=== PATIENT | male | born 1945 | race Caucasian/White ===

== ENCOUNTER 2016-06-05 13:36 | Outpatient (CLI) | payer MEDICARE, MEDICAID ==
[~2016-06-05 13:36] MED LIST: ANDRODERM PATCH TD; COLC0.6T69 PO; DIAZ5TAB4 PO; ENOX80DI SQ; ESOM20CA PO; GLIM1TAB2 PO; HYDR-429 PO; LEVO100T9 PO; LOSA100T15 PO; SITA100T PO; TADA5TAB2 PO; WARF1TAB47 PO
== END 2016-06-05 23:59 | disposition home or self-care (01) ==
LOC: WOU 13:36
PROVIDERS: ATTEND Podiatrist Foot & Ankle Surgery
DX: I87.313 Chronic venous hypertension (idiopathic) with ulcer of bilateral lower extremity (principal); L97.821 Non-pressure chronic ulcer of other part of left lower leg limited to breakdown of skin; L97.811 Non-pressure chronic ulcer of other part of right lower leg limited to breakdown of skin; E11.9 Type 2 diabetes mellitus without complications; Z87.891 Personal history of nicotine dependence; Z86.718 Personal history of other venous thrombosis and embolism; Z86.711 Personal history of pulmonary embolism; Z83.3 Family history of diabetes mellitus; Z83.49 Family history of other endocrine, nutritional and metabolic diseases; J44.9 Chronic obstructive pulmonary disease, unspecified; I10 Essential (primary) hypertension
CPT/HCPCS: 11042; A6402 ×2

== ENCOUNTER 2016-06-17 14:08 | Outpatient (CLI) | payer MEDICARE, MEDICAID | END 2016-06-17 23:59 | disposition home or self-care (01) | LOC: WOU 14:08 | PROVIDERS: ATTEND Podiatrist Foot & Ankle Surgery | DX: I87.333 Chronic venous hypertension (idiopathic) with ulcer and inflammation of bilateral lower extremity (principal); L97.821 Non-pressure chronic ulcer of other part of left lower leg limited to breakdown of skin; L97.811 Non-pressure chronic ulcer of other part of right lower leg limited to breakdown of skin; Z86.718 Personal history of other venous thrombosis and embolism; Z79.01 Long term (current) use of anticoagulants; L03.119 Cellulitis of unspecified part of limb; I65.29 Occlusion and stenosis of unspecified carotid artery | CPT/HCPCS: 11042; A6402 ==

== ENCOUNTER 2016-07-01 13:12 | Outpatient (CLI) | payer MEDICARE, MEDICAID ==
[~2016-07-01 13:12] MED LIST changes: -HYDR-429 PO; +HYDR-548 PO
== END 2016-07-01 23:59 | disposition home or self-care (01) ==
LOC: WOU 13:12
PROVIDERS: ATTEND Podiatrist Foot & Ankle Surgery
DX: I83.008 Varicose veins of unspecified lower extremity with ulcer other part of lower leg (principal); L97.811 Non-pressure chronic ulcer of other part of right lower leg limited to breakdown of skin; L97.821 Non-pressure chronic ulcer of other part of left lower leg limited to breakdown of skin; B35.1 Tinea unguium; E03.9 Hypothyroidism, unspecified; Z87.891 Personal history of nicotine dependence; Z86.718 Personal history of other venous thrombosis and embolism; Z79.01 Long term (current) use of anticoagulants; Z79.84 Long term (current) use of oral hypoglycemic drugs; Z83.3 Family history of diabetes mellitus; I10 Essential (primary) hypertension; I83.893 Varicose veins of bilateral lower extremities with other complications
CPT/HCPCS: 11042; 11045; A6402 ×2

== ENCOUNTER 2016-07-10 14:32 | Outpatient (CLI) | payer MEDICARE, MEDICAID | END 2016-07-10 23:59 | disposition home or self-care (01) | LOC: WOU 14:32 | PROVIDERS: ATTEND Podiatrist Foot & Ankle Surgery | DX: I87.313 Chronic venous hypertension (idiopathic) with ulcer of bilateral lower extremity (principal); L97.821 Non-pressure chronic ulcer of other part of left lower leg limited to breakdown of skin; L97.811 Non-pressure chronic ulcer of other part of right lower leg limited to breakdown of skin; Z86.718 Personal history of other venous thrombosis and embolism; Z79.01 Long term (current) use of anticoagulants; Z87.891 Personal history of nicotine dependence; E03.9 Hypothyroidism, unspecified; E11.9 Type 2 diabetes mellitus without complications; I10 Essential (primary) hypertension; B35.1 Tinea unguium | CPT/HCPCS: 11042; A6402 ==

== ENCOUNTER 2016-07-17 14:20 | Outpatient (CLI) | payer MEDICARE, MEDICAID | END 2016-07-17 23:59 | disposition home or self-care (01) | LOC: WOU 14:20 | PROVIDERS: ATTEND Podiatrist Foot & Ankle Surgery | DX: I87.313 Chronic venous hypertension (idiopathic) with ulcer of bilateral lower extremity (principal); L97.223 Non-pressure chronic ulcer of left calf with necrosis of muscle; L97.213 Non-pressure chronic ulcer of right calf with necrosis of muscle; I82.221 Chronic embolism and thrombosis of inferior vena cava; E03.9 Hypothyroidism, unspecified; I10 Essential (primary) hypertension; E11.9 Type 2 diabetes mellitus without complications; J44.9 Chronic obstructive pulmonary disease, unspecified; Z79.01 Long term (current) use of anticoagulants; I65.29 Occlusion and stenosis of unspecified carotid artery; Z79.899 Other long term (current) drug therapy | CPT/HCPCS: 11042; 11045; A6402 ×2 ==

== ENCOUNTER 2016-07-24 13:28 | Outpatient (CLI) | payer MEDICARE, MEDICAID | END 2016-07-24 23:59 | disposition home or self-care (01) | LOC: WOU 13:28 | PROVIDERS: ATTEND Podiatrist Foot & Ankle Surgery | DX: I83.208 Varicose veins of unspecified lower extremity with both ulcer of other part of lower extremity and inflammation (principal); L97.813 Non-pressure chronic ulcer of other part of right lower leg with necrosis of muscle; L97.823 Non-pressure chronic ulcer of other part of left lower leg with necrosis of muscle; J44.9 Chronic obstructive pulmonary disease, unspecified; Z87.891 Personal history of nicotine dependence; Z83.3 Family history of diabetes mellitus; I83.893 Varicose veins of bilateral lower extremities with other complications; I65.29 Occlusion and stenosis of unspecified carotid artery; Z79.01 Long term (current) use of anticoagulants; Z86.718 Personal history of other venous thrombosis and embolism; I10 Essential (primary) hypertension; E11.9 Type 2 diabetes mellitus without complications | CPT/HCPCS: 11042; A6402 ==

== ENCOUNTER 2016-12-09 14:13 | Outpatient (CLI) | payer MEDICARE, MEDICAID | END 2016-12-09 23:59 | disposition home or self-care (01) | LOC: WOU 14:13 | PROVIDERS: ATTEND Podiatrist Foot & Ankle Surgery | DX: I87.333 Chronic venous hypertension (idiopathic) with ulcer and inflammation of bilateral lower extremity (principal); L97.821 Non-pressure chronic ulcer of other part of left lower leg limited to breakdown of skin; L97.811 Non-pressure chronic ulcer of other part of right lower leg limited to breakdown of skin; L03.90 Cellulitis, unspecified; Z86.718 Personal history of other venous thrombosis and embolism; I10 Essential (primary) hypertension; J44.9 Chronic obstructive pulmonary disease, unspecified; E03.9 Hypothyroidism, unspecified; Z87.891 Personal history of nicotine dependence; Z59.0 Homelessness | CPT/HCPCS: 11042; 11045; A6402 ×2 ==

== ENCOUNTER 2016-12-16 14:26 | Outpatient (CLI) | payer MEDICARE, MEDICAID | END 2016-12-16 23:59 | disposition home or self-care (01) | LOC: WOU 14:26 | PROVIDERS: ATTEND Podiatrist Foot & Ankle Surgery | DX: I87.2 Venous insufficiency (chronic) (peripheral) (principal); L97.821 Non-pressure chronic ulcer of other part of left lower leg limited to breakdown of skin; L97.811 Non-pressure chronic ulcer of other part of right lower leg limited to breakdown of skin; Z86.718 Personal history of other venous thrombosis and embolism; Z79.01 Long term (current) use of anticoagulants | CPT/HCPCS: 11042; 11045; A6402 ×2 ==

== ENCOUNTER 2016-12-25 13:46 | Outpatient (CLI) | payer MEDICARE, MEDICAID | END 2016-12-25 23:59 | disposition home or self-care (01) | LOC: WOU 13:46 | PROVIDERS: ATTEND Podiatrist Foot & Ankle Surgery | DX: I87.2 Venous insufficiency (chronic) (peripheral) (principal); L97.821 Non-pressure chronic ulcer of other part of left lower leg limited to breakdown of skin; L97.811 Non-pressure chronic ulcer of other part of right lower leg limited to breakdown of skin; Z86.718 Personal history of other venous thrombosis and embolism; Z79.01 Long term (current) use of anticoagulants; J44.9 Chronic obstructive pulmonary disease, unspecified; E03.9 Hypothyroidism, unspecified; I10 Essential (primary) hypertension; B35.3 Tinea pedis; B35.1 Tinea unguium; L85.3 Xerosis cutis; R60.0 Localized edema; E11.52 Type 2 diabetes mellitus with diabetic peripheral angiopathy with gangrene; Z79.84 Long term (current) use of oral hypoglycemic drugs | CPT/HCPCS: 11042; 11045; A6402 ==

== ENCOUNTER 2016-12-30 13:45 | Outpatient (CLI) | payer MEDICARE, MEDICAID | END 2016-12-30 23:59 | disposition home or self-care (01) | LOC: WOU 13:45 | PROVIDERS: ATTEND Podiatrist Foot & Ankle Surgery | DX: I87.333 Chronic venous hypertension (idiopathic) with ulcer and inflammation of bilateral lower extremity (principal); L97.821 Non-pressure chronic ulcer of other part of left lower leg limited to breakdown of skin; L97.811 Non-pressure chronic ulcer of other part of right lower leg limited to breakdown of skin; Z87.891 Personal history of nicotine dependence; Z86.718 Personal history of other venous thrombosis and embolism; E03.9 Hypothyroidism, unspecified; E11.51 Type 2 diabetes mellitus with diabetic peripheral angiopathy without gangrene; Z79.01 Long term (current) use of anticoagulants; Z79.84 Long term (current) use of oral hypoglycemic drugs | CPT/HCPCS: 17250; A6402 ==

== ENCOUNTER 2017-01-08 14:27 | Outpatient (CLI) | payer MEDICARE, MEDICAID | END 2017-01-08 23:59 | disposition home or self-care (01) | LOC: WOU 14:27 | PROVIDERS: ATTEND Podiatrist Foot & Ankle Surgery | DX: I87.2 Venous insufficiency (chronic) (peripheral) (principal); L97.821 Non-pressure chronic ulcer of other part of left lower leg limited to breakdown of skin; L97.811 Non-pressure chronic ulcer of other part of right lower leg limited to breakdown of skin; Z86.718 Personal history of other venous thrombosis and embolism; Z79.01 Long term (current) use of anticoagulants; Z79.84 Long term (current) use of oral hypoglycemic drugs; R60.0 Localized edema | CPT/HCPCS: 11042; 11045; A6197; A6402 ==

== ENCOUNTER 2017-01-13 14:42 | Outpatient (CLI) | payer MEDICARE, MEDICAID | END 2017-01-13 23:59 | disposition home or self-care (01) | LOC: WOU 14:42 | PROVIDERS: ATTEND Podiatrist Foot & Ankle Surgery | DX: I87.2 Venous insufficiency (chronic) (peripheral) (principal); L97.811 Non-pressure chronic ulcer of other part of right lower leg limited to breakdown of skin; L97.821 Non-pressure chronic ulcer of other part of left lower leg limited to breakdown of skin; Z86.718 Personal history of other venous thrombosis and embolism; Z79.01 Long term (current) use of anticoagulants; Z79.84 Long term (current) use of oral hypoglycemic drugs; R60.0 Localized edema | CPT/HCPCS: 11042; A6402 ×2 ==

== ENCOUNTER 2017-01-20 14:16 | Outpatient (CLI) | payer MEDICARE, MEDICAID | END 2017-01-20 23:59 | disposition home or self-care (01) | LOC: WOU 14:16 | PROVIDERS: ATTEND Podiatrist Foot & Ankle Surgery | DX: I87.2 Venous insufficiency (chronic) (peripheral) (principal); L97.811 Non-pressure chronic ulcer of other part of right lower leg limited to breakdown of skin; L97.821 Non-pressure chronic ulcer of other part of left lower leg limited to breakdown of skin; Z86.718 Personal history of other venous thrombosis and embolism; Z79.01 Long term (current) use of anticoagulants; R60.0 Localized edema; L03.115 Cellulitis of right lower limb; Z79.84 Long term (current) use of oral hypoglycemic drugs; E11.9 Type 2 diabetes mellitus without complications | CPT/HCPCS: 11042; 11045; 87070; A6402 ×2; 87186-TC ==

== ENCOUNTER 2017-01-29 13:35 | Outpatient (CLI) | payer MEDICARE, MEDICAID | END 2017-01-29 23:59 | disposition home or self-care (01) | LOC: WOU 13:35 | PROVIDERS: ATTEND Podiatrist Foot & Ankle Surgery | DX: I87.2 Venous insufficiency (chronic) (peripheral) (principal); Z86.718 Personal history of other venous thrombosis and embolism; Z79.01 Long term (current) use of anticoagulants; R60.0 Localized edema; L97.313 Non-pressure chronic ulcer of right ankle with necrosis of muscle; L97.811 Non-pressure chronic ulcer of other part of right lower leg limited to breakdown of skin; L97.821 Non-pressure chronic ulcer of other part of left lower leg limited to breakdown of skin | CPT/HCPCS: 11042; 11043; A6253; A6402 ==

== ENCOUNTER 2017-02-03 13:47 | Outpatient (CLI) | payer MEDICARE, MEDICAID | END 2017-02-03 23:59 | disposition home or self-care (01) | LOC: WOU 13:47 | PROVIDERS: ATTEND Podiatrist Foot & Ankle Surgery | DX: I83.013 Varicose veins of right lower extremity with ulcer of ankle (principal); I83.018 Varicose veins of right lower extremity with ulcer other part of lower leg; I83.028 Varicose veins of left lower extremity with ulcer other part of lower leg; L97.811 Non-pressure chronic ulcer of other part of right lower leg limited to breakdown of skin; L97.821 Non-pressure chronic ulcer of other part of left lower leg limited to breakdown of skin; L03.115 Cellulitis of right lower limb; L97.312 Non-pressure chronic ulcer of right ankle with fat layer exposed; Z86.718 Personal history of other venous thrombosis and embolism; Z79.01 Long term (current) use of anticoagulants | CPT/HCPCS: 11042; 82962-TC; A6402 ==

== ENCOUNTER 2017-02-17 09:11 | Outpatient (CLI) | payer MEDICARE, MEDICAID | END 2017-02-17 23:59 | disposition home or self-care (01) | LOC: WOU 09:11 | PROVIDERS: ATTEND Podiatrist Foot & Ankle Surgery | DX: I87.2 Venous insufficiency (chronic) (peripheral) (principal); L97.811 Non-pressure chronic ulcer of other part of right lower leg limited to breakdown of skin; L97.311 Non-pressure chronic ulcer of right ankle limited to breakdown of skin; R60.0 Localized edema; Z88.1 Allergy status to other antibiotic agents; T82.898D Other specified complication of vascular prosthetic devices, implants and grafts, subsequent encounter; Z86.718 Personal history of other venous thrombosis and embolism; Z79.02 Long term (current) use of antithrombotics/antiplatelets | CPT/HCPCS: 11042; A6402 ==

== ENCOUNTER 2017-02-23 13:38 | Outpatient (CLI) | payer MEDICARE, MEDICAID | END 2017-02-23 23:59 | disposition home or self-care (01) | LOC: WOU 13:38 | PROVIDERS: ATTEND Podiatrist Foot & Ankle Surgery | DX: I87.2 Venous insufficiency (chronic) (peripheral) (principal); L97.311 Non-pressure chronic ulcer of right ankle limited to breakdown of skin; L97.811 Non-pressure chronic ulcer of other part of right lower leg limited to breakdown of skin; R60.0 Localized edema; Z86.718 Personal history of other venous thrombosis and embolism; Z79.01 Long term (current) use of anticoagulants | CPT/HCPCS: 11042; 11045; 82962-TC; A6402 ==

== ENCOUNTER 2017-03-09 13:25 | Outpatient (CLI) | payer MEDICARE, MEDICAID | END 2017-03-09 23:59 | disposition home or self-care (01) | LOC: WOU 13:25 | PROVIDERS: ATTEND Podiatrist Foot & Ankle Surgery | DX: I87.2 Venous insufficiency (chronic) (peripheral) (principal); L97.311 Non-pressure chronic ulcer of right ankle limited to breakdown of skin; L97.811 Non-pressure chronic ulcer of other part of right lower leg limited to breakdown of skin; R60.0 Localized edema; Z86.718 Personal history of other venous thrombosis and embolism; Z79.01 Long term (current) use of anticoagulants; L03.115 Cellulitis of right lower limb; B35.1 Tinea unguium; B35.3 Tinea pedis | CPT/HCPCS: 11042; A6402 ×2 ==

== ENCOUNTER 2017-03-19 13:40 | Outpatient (CLI) | payer MEDICARE, OTHER | END 2017-03-19 23:59 | disposition home or self-care (01) | LOC: WOU 13:40 | PROVIDERS: ATTEND Podiatrist Foot & Ankle Surgery | DX: I87.2 Venous insufficiency (chronic) (peripheral) (principal); L97.311 Non-pressure chronic ulcer of right ankle limited to breakdown of skin; L97.811 Non-pressure chronic ulcer of other part of right lower leg limited to breakdown of skin; R60.0 Localized edema; Z86.718 Personal history of other venous thrombosis and embolism; Z79.01 Long term (current) use of anticoagulants; B35.1 Tinea unguium; B35.3 Tinea pedis; T82.59 Other mechanical complication of other cardiac and vascular devices and implants; L03.115 Cellulitis of right lower limb | CPT/HCPCS: 11042; 11045; 87070; 87075; 87077; A6253; A6402 ==

== ENCOUNTER 2017-03-26 13:15 | Outpatient (CLI) | payer MEDICARE, MEDICAID ==
[~2017-03-26 13:15] MED LIST changes: +methylPREDNISolone SOD SUCC 125 MG/2ML VIAL ONE
== END 2017-03-26 23:59 | disposition home or self-care (01) ==
LOC: WOU 13:15
PROVIDERS: ATTEND Podiatrist Foot & Ankle Surgery
DX: I87.331 Chronic venous hypertension (idiopathic) with ulcer and inflammation of right lower extremity (principal); L97.311 Non-pressure chronic ulcer of right ankle limited to breakdown of skin; L97.811 Non-pressure chronic ulcer of other part of right lower leg limited to breakdown of skin; L03.115 Cellulitis of right lower limb; I87.302 Chronic venous hypertension (idiopathic) without complications of left lower extremity; L90.9 Atrophic disorder of skin, unspecified; Z86.718 Personal history of other venous thrombosis and embolism; Z79.01 Long term (current) use of anticoagulants; Z88.1 Allergy status to other antibiotic agents; T82.59 Other mechanical complication of other cardiac and vascular devices and implants
CPT/HCPCS: 11042; 11045; A6253; A6402; J2930

== ENCOUNTER 2017-04-02 13:15 | Outpatient (CLI) | payer MEDICARE, MEDICAID ==
[~2017-04-02 13:15] MED LIST changes: -methylPREDNISolone SOD SUCC 125 MG/2ML VIAL ONE
== END 2017-04-02 23:59 | disposition home or self-care (01) ==
LOC: WOU 13:15
PROVIDERS: ATTEND Podiatrist Foot & Ankle Surgery
DX: L97.311 Non-pressure chronic ulcer of right ankle limited to breakdown of skin (principal); L97.811 Non-pressure chronic ulcer of other part of right lower leg limited to breakdown of skin; L03.115 Cellulitis of right lower limb; R60.0 Localized edema; Z86.718 Personal history of other venous thrombosis and embolism; T82.59 Other mechanical complication of other cardiac and vascular devices and implants; Z79.01 Long term (current) use of anticoagulants
CPT/HCPCS: 11042; 11045; A6253; A6402

== ENCOUNTER 2017-04-06 14:30 | Outpatient (CLI) | payer MEDICARE, MEDICAID | END 2017-04-06 23:59 | disposition home or self-care (01) | LOC: WOU 14:30 | PROVIDERS: ATTEND Podiatrist Foot & Ankle Surgery | DX: I83.213 Varicose veins of right lower extremity with both ulcer of ankle and inflammation (principal); L97.311 Non-pressure chronic ulcer of right ankle limited to breakdown of skin; L97.811 Non-pressure chronic ulcer of other part of right lower leg limited to breakdown of skin; B35.1 Tinea unguium; L03.115 Cellulitis of right lower limb; Z86.718 Personal history of other venous thrombosis and embolism; T82.59 Other mechanical complication of other cardiac and vascular devices and implants; Z79.01 Long term (current) use of anticoagulants | CPT/HCPCS: 11042; 11045; A6253; A6402 ==

== ENCOUNTER 2017-04-09 14:00 | Outpatient (CLI) | payer MEDICARE, MEDICAID | END 2017-04-09 23:59 | disposition home or self-care (01) | LOC: WOU 14:00 | PROVIDERS: ATTEND Podiatrist Foot & Ankle Surgery | DX: I87.2 Venous insufficiency (chronic) (peripheral) (principal); Z86.718 Personal history of other venous thrombosis and embolism; Z79.01 Long term (current) use of anticoagulants; T82.898D Other specified complication of vascular prosthetic devices, implants and grafts, subsequent encounter; L03.116 Cellulitis of left lower limb; L03.115 Cellulitis of right lower limb; R60.0 Localized edema; L97.312 Non-pressure chronic ulcer of right ankle with fat layer exposed; L97.829 Non-pressure chronic ulcer of other part of left lower leg with unspecified severity; L97.819 Non-pressure chronic ulcer of other part of right lower leg with unspecified severity | CPT/HCPCS: 11042; A6253; A6402 ==

== ENCOUNTER 2017-04-20 14:30 | Outpatient (CLI) | payer MEDICARE, MEDICAID | END 2017-04-20 23:59 | disposition home or self-care (01) | LOC: WOU 14:30 | PROVIDERS: ATTEND Podiatrist Foot & Ankle Surgery | DX: I87.2 Venous insufficiency (chronic) (peripheral) (principal); R60.0 Localized edema; L97.812 Non-pressure chronic ulcer of other part of right lower leg with fat layer exposed; L97.312 Non-pressure chronic ulcer of right ankle with fat layer exposed; L97.829 Non-pressure chronic ulcer of other part of left lower leg with unspecified severity; S91.302A Unspecified open wound, left foot, initial encounter; X58.XXXA Exposure to other specified factors, initial encounter; Z86.718 Personal history of other venous thrombosis and embolism; T82.898D Other specified complication of vascular prosthetic devices, implants and grafts, subsequent encounter; Y92.89 Other specified places as the place of occurrence of the external cause; Z79.01 Long term (current) use of anticoagulants; S80.12XA Contusion of left lower leg, initial encounter | CPT/HCPCS: 10160; 11042; 11043; 87070; 87075; 87077; 87186; A6253 ×2; A6402; J3490 ==

== ENCOUNTER 2017-04-30 14:00 | Outpatient (CLI) | payer MEDICARE, MEDICAID | END 2017-04-30 23:59 | disposition home or self-care (01) | LOC: WOU 14:00 | PROVIDERS: ATTEND Podiatrist Foot & Ankle Surgery | DX: I87.2 Venous insufficiency (chronic) (peripheral) (principal); L97.312 Non-pressure chronic ulcer of right ankle with fat layer exposed; L97.812 Non-pressure chronic ulcer of other part of right lower leg with fat layer exposed; L97.822 Non-pressure chronic ulcer of other part of left lower leg with fat layer exposed; Z86.718 Personal history of other venous thrombosis and embolism; Z79.01 Long term (current) use of anticoagulants; R60.0 Localized edema | CPT/HCPCS: 11042; A6253 ×2; A6402 ×2 ==

== ENCOUNTER 2017-05-11 13:40 | Outpatient (CLI) | payer MEDICARE, MEDICAID | END 2017-05-11 23:59 | disposition home or self-care (01) | LOC: WOU 13:40 | PROVIDERS: ATTEND Podiatrist Foot & Ankle Surgery | DX: I87.2 Venous insufficiency (chronic) (peripheral) (principal); L97.312 Non-pressure chronic ulcer of right ankle with fat layer exposed; L97.829 Non-pressure chronic ulcer of other part of left lower leg with unspecified severity; L97.812 Non-pressure chronic ulcer of other part of right lower leg with fat layer exposed; Z86.718 Personal history of other venous thrombosis and embolism; Z79.01 Long term (current) use of anticoagulants; T82.59 Other mechanical complication of other cardiac and vascular devices and implants | CPT/HCPCS: 11042; 11045; A6253 ×3; A6402 ==

== ENCOUNTER 2017-07-02 14:08 | Outpatient (CLI) | payer MEDICARE, MEDICAID ==
[~2017-07-02 14:08] MED LIST changes: +COLC0.6T67 PO; -COLC0.6T69 PO
== END 2017-07-02 23:59 | disposition home or self-care (01) ==
LOC: WOU 14:08
PROVIDERS: ATTEND Podiatrist Foot & Ankle Surgery
DX: I87.2 Venous insufficiency (chronic) (peripheral) (principal); L97.312 Non-pressure chronic ulcer of right ankle with fat layer exposed; L97.822 Non-pressure chronic ulcer of other part of left lower leg with fat layer exposed; L97.812 Non-pressure chronic ulcer of other part of right lower leg with fat layer exposed; R60.0 Localized edema; I25.10 Atherosclerotic heart disease of native coronary artery without angina pectoris; Z95.1 Presence of aortocoronary bypass graft; Z87.891 Personal history of nicotine dependence; E11.9 Type 2 diabetes mellitus without complications; J44.9 Chronic obstructive pulmonary disease, unspecified; Z86.718 Personal history of other venous thrombosis and embolism; Z79.01 Long term (current) use of anticoagulants; Z79.84 Long term (current) use of oral hypoglycemic drugs; I10 Essential (primary) hypertension
CPT/HCPCS: 11042; 11045; 82962; A6253; A6402 ×2

== ENCOUNTER 2017-07-09 12:41 | Outpatient (CLI) | payer MEDICARE, MEDICAID | END 2017-07-09 23:59 | disposition home or self-care (01) | LOC: WOU 12:41 | PROVIDERS: ATTEND Podiatrist Foot & Ankle Surgery | DX: I87.2 Venous insufficiency (chronic) (peripheral) (principal); L97.312 Non-pressure chronic ulcer of right ankle with fat layer exposed; L97.822 Non-pressure chronic ulcer of other part of left lower leg with fat layer exposed; L97.812 Non-pressure chronic ulcer of other part of right lower leg with fat layer exposed; R60.0 Localized edema; Z86.718 Personal history of other venous thrombosis and embolism; Z79.01 Long term (current) use of anticoagulants; T82.59 Other mechanical complication of other cardiac and vascular devices and implants; L90.9 Atrophic disorder of skin, unspecified | CPT/HCPCS: 11042; 17250; A6253; A6402; A6452 ==

== ENCOUNTER 2017-08-10 14:07 | Outpatient (CLI) | payer MEDICARE, MEDICAID | END 2017-08-10 23:59 | disposition home or self-care (01) | LOC: WOU 14:07 | PROVIDERS: ATTEND Podiatrist Foot & Ankle Surgery | DX: I87.2 Venous insufficiency (chronic) (peripheral) (principal); L97.312 Non-pressure chronic ulcer of right ankle with fat layer exposed; L97.822 Non-pressure chronic ulcer of other part of left lower leg with fat layer exposed; L97.812 Non-pressure chronic ulcer of other part of right lower leg with fat layer exposed; I25.10 Atherosclerotic heart disease of native coronary artery without angina pectoris; Z95.1 Presence of aortocoronary bypass graft; Z79.01 Long term (current) use of anticoagulants; R60.0 Localized edema; Z86.718 Personal history of other venous thrombosis and embolism; I10 Essential (primary) hypertension; J44.9 Chronic obstructive pulmonary disease, unspecified; E11.9 Type 2 diabetes mellitus without complications; T85.698D Other mechanical complication of other specified internal prosthetic devices, implants and grafts, subsequent encounter; Z79.84 Long term (current) use of oral hypoglycemic drugs | CPT/HCPCS: 11042; 82962-TC; A6253; A6402 ==

== ENCOUNTER 2017-08-24 13:41 | Outpatient (CLI) | payer MEDICARE, MEDICAID | END 2017-08-24 23:59 | disposition home or self-care (01) | LOC: WOU 13:41 | PROVIDERS: ATTEND Podiatrist Foot & Ankle Surgery | DX: I87.2 Venous insufficiency (chronic) (peripheral) (principal); Z86.718 Personal history of other venous thrombosis and embolism; L97.822 Non-pressure chronic ulcer of other part of left lower leg with fat layer exposed; L97.812 Non-pressure chronic ulcer of other part of right lower leg with fat layer exposed; L97.312 Non-pressure chronic ulcer of right ankle with fat layer exposed; T82.59 Other mechanical complication of other cardiac and vascular devices and implants | CPT/HCPCS: 11042; A6253; A6402 ==

== ENCOUNTER 2017-09-03 13:55 | Outpatient (CLI) | payer MEDICARE, MEDICAID | END 2017-09-03 23:59 | disposition home or self-care (01) | LOC: WOU 13:55 | PROVIDERS: ATTEND Podiatrist Foot & Ankle Surgery | DX: I87.2 Venous insufficiency (chronic) (peripheral) (principal); L97.312 Non-pressure chronic ulcer of right ankle with fat layer exposed; L97.812 Non-pressure chronic ulcer of other part of right lower leg with fat layer exposed; L97.822 Non-pressure chronic ulcer of other part of left lower leg with fat layer exposed; R60.9 Edema, unspecified; Z98.890 Other specified postprocedural states | CPT/HCPCS: 11042; 82962; A6253; A6402 ×2; A6209 ==

== ENCOUNTER 2017-09-28 14:27 | Outpatient (CLI) | payer MEDICARE, OTHER | END 2017-09-28 23:59 | disposition home or self-care (01) | LOC: WOU 14:27 | PROVIDERS: ATTEND Podiatrist Foot & Ankle Surgery | DX: I87.313 Chronic venous hypertension (idiopathic) with ulcer of bilateral lower extremity (principal); L97.812 Non-pressure chronic ulcer of other part of right lower leg with fat layer exposed; L97.312 Non-pressure chronic ulcer of right ankle with fat layer exposed; L97.822 Non-pressure chronic ulcer of other part of left lower leg with fat layer exposed; L30.9 Dermatitis, unspecified; B35.1 Tinea unguium | CPT/HCPCS: 11042; A6402; A6452 ==

== ENCOUNTER 2017-10-08 14:25 | Outpatient (CLI) | payer MEDICARE, MEDICAID, OTHER | END 2017-10-08 23:59 | disposition home or self-care (01) | LOC: WOU 14:25 | PROVIDERS: ATTEND Podiatrist Foot & Ankle Surgery | DX: I87.2 Venous insufficiency (chronic) (peripheral) (principal); L97.818 Non-pressure chronic ulcer of other part of right lower leg with other specified severity; L97.312 Non-pressure chronic ulcer of right ankle with fat layer exposed; L97.828 Non-pressure chronic ulcer of other part of left lower leg with other specified severity; L81.9 Disorder of pigmentation, unspecified; R60.9 Edema, unspecified; Z88.8 Allergy status to other drugs, medicaments and biological substances; Z98.890 Other specified postprocedural states; Z79.01 Long term (current) use of anticoagulants; Z79.84 Long term (current) use of oral hypoglycemic drugs; Z79.891 Long term (current) use of opiate analgesic | CPT/HCPCS: A6253; A6402; G0463 ==

== ENCOUNTER 2017-10-15 13:45 | Outpatient (CLI) | payer MEDICARE, OTHER | END 2017-10-15 23:59 | disposition home or self-care (01) | LOC: WOU 13:45 | PROVIDERS: ATTEND Podiatrist Foot & Ankle Surgery | DX: I87.2 Venous insufficiency (chronic) (peripheral) (principal); I87.8 Other specified disorders of veins; L97.822 Non-pressure chronic ulcer of other part of left lower leg with fat layer exposed; L97.812 Non-pressure chronic ulcer of other part of right lower leg with fat layer exposed; L97.312 Non-pressure chronic ulcer of right ankle with fat layer exposed; Z86.718 Personal history of other venous thrombosis and embolism; Z79.01 Long term (current) use of anticoagulants; T82.59 Other mechanical complication of other cardiac and vascular devices and implants | CPT/HCPCS: 11042; 82962; A6402 ×3 ==

== ENCOUNTER 2017-10-29 13:56 | Outpatient (CLI) | payer MEDICARE, MEDICAID | END 2017-10-29 23:59 | disposition home or self-care (01) | LOC: WOU 13:56 | PROVIDERS: ATTEND Podiatrist Foot & Ankle Surgery | DX: I87.2 Venous insufficiency (chronic) (peripheral) (principal); L97.822 Non-pressure chronic ulcer of other part of left lower leg with fat layer exposed; L97.812 Non-pressure chronic ulcer of other part of right lower leg with fat layer exposed; L97.312 Non-pressure chronic ulcer of right ankle with fat layer exposed; Z86.718 Personal history of other venous thrombosis and embolism; I25.10 Atherosclerotic heart disease of native coronary artery without angina pectoris; T85.698D Other mechanical complication of other specified internal prosthetic devices, implants and grafts, subsequent encounter; Z79.84 Long term (current) use of oral hypoglycemic drugs; Z79.01 Long term (current) use of anticoagulants | CPT/HCPCS: 11042; A6253; A6402 ==

== ENCOUNTER 2017-11-05 13:11 | Outpatient (CLI) | payer MEDICARE, MEDICAID | END 2017-11-05 23:59 | disposition home or self-care (01) | LOC: WOU 13:11 | PROVIDERS: ATTEND Podiatrist Foot & Ankle Surgery | DX: I87.313 Chronic venous hypertension (idiopathic) with ulcer of bilateral lower extremity (principal); L97.822 Non-pressure chronic ulcer of other part of left lower leg with fat layer exposed; L97.312 Non-pressure chronic ulcer of right ankle with fat layer exposed; L97.812 Non-pressure chronic ulcer of other part of right lower leg with fat layer exposed; I25.10 Atherosclerotic heart disease of native coronary artery without angina pectoris; Z86.718 Personal history of other venous thrombosis and embolism; T82.59 Other mechanical complication of other cardiac and vascular devices and implants | CPT/HCPCS: 11042; 17250; A6402 ==

== ENCOUNTER 2017-11-12 11:20 | Outpatient (CLI) | payer MEDICARE, MEDICAID | END 2017-11-12 23:59 | disposition home or self-care (01) | LOC: WOU 11:20 | PROVIDERS: ATTEND Podiatrist Foot & Ankle Surgery | DX: I83.013 Varicose veins of right lower extremity with ulcer of ankle (principal); I83.023 Varicose veins of left lower extremity with ulcer of ankle; L97.312 Non-pressure chronic ulcer of right ankle with fat layer exposed; L97.822 Non-pressure chronic ulcer of other part of left lower leg with fat layer exposed; Z79.84 Long term (current) use of oral hypoglycemic drugs; Z86.718 Personal history of other venous thrombosis and embolism; Z79.01 Long term (current) use of anticoagulants; T82.59 Other mechanical complication of other cardiac and vascular devices and implants | CPT/HCPCS: 11042; A6253; A6402; A6452 ==

== ENCOUNTER 2017-11-23 13:46 | Outpatient (CLI) | payer MEDICARE, MEDICAID | END 2017-11-23 23:59 | disposition home or self-care (01) | LOC: WOU 13:46 | PROVIDERS: ATTEND Podiatrist Foot & Ankle Surgery | DX: I87.2 Venous insufficiency (chronic) (peripheral) (principal); L97.822 Non-pressure chronic ulcer of other part of left lower leg with fat layer exposed; L97.812 Non-pressure chronic ulcer of other part of right lower leg with fat layer exposed; L97.312 Non-pressure chronic ulcer of right ankle with fat layer exposed; R60.0 Localized edema; T82.59 Other mechanical complication of other cardiac and vascular devices and implants; Z86.718 Personal history of other venous thrombosis and embolism; Z79.01 Long term (current) use of anticoagulants; Z87.828 Personal history of other (healed) physical injury and trauma; I25.10 Atherosclerotic heart disease of native coronary artery without angina pectoris; Z88.1 Allergy status to other antibiotic agents | CPT/HCPCS: 11042; A6253; A6402 ==

== ENCOUNTER 2017-12-10 13:21 | Outpatient (CLI) | payer MEDICARE, MEDICAID | END 2017-12-10 23:59 | disposition home or self-care (01) | LOC: WOU 13:21 | PROVIDERS: ATTEND Podiatrist Foot & Ankle Surgery | DX: I87.2 Venous insufficiency (chronic) (peripheral) (principal); L97.822 Non-pressure chronic ulcer of other part of left lower leg with fat layer exposed; L97.812 Non-pressure chronic ulcer of other part of right lower leg with fat layer exposed; L97.312 Non-pressure chronic ulcer of right ankle with fat layer exposed; Z86.718 Personal history of other venous thrombosis and embolism; Z79.01 Long term (current) use of anticoagulants; T82.59 Other mechanical complication of other cardiac and vascular devices and implants; I25.10 Atherosclerotic heart disease of native coronary artery without angina pectoris | CPT/HCPCS: 17250 ×2; A6253; A6402; Z7610 ==

== ENCOUNTER 2018-01-04 14:40 | Outpatient (CLI) | payer MEDICARE, MEDICAID | END 2018-01-04 23:59 | disposition home or self-care (01) | LOC: WOU 14:40 | PROVIDERS: ATTEND Podiatrist Foot & Ankle Surgery | DX: I87.2 Venous insufficiency (chronic) (peripheral) (principal); L97.318 Non-pressure chronic ulcer of right ankle with other specified severity; L97.818 Non-pressure chronic ulcer of other part of right lower leg with other specified severity; L97.828 Non-pressure chronic ulcer of other part of left lower leg with other specified severity; R60.0 Localized edema; I73.9 Peripheral vascular disease, unspecified; Z79.899 Other long term (current) drug therapy | CPT/HCPCS: 11042; 17250 ×2; A6253 ×2; A6402; Z7610 ==

== ENCOUNTER 2018-01-25 13:50 | Outpatient (CLI) | payer MEDICARE, MEDICAID | END 2018-01-25 23:59 | disposition home or self-care (01) | LOC: WOU 13:50 | PROVIDERS: ATTEND Podiatrist Foot & Ankle Surgery | DX: I87.2 Venous insufficiency (chronic) (peripheral) (principal); L97.812 Non-pressure chronic ulcer of other part of right lower leg with fat layer exposed; L97.312 Non-pressure chronic ulcer of right ankle with fat layer exposed; L97.822 Non-pressure chronic ulcer of other part of left lower leg with fat layer exposed; I73.9 Peripheral vascular disease, unspecified; R60.0 Localized edema | CPT/HCPCS: 17250; 82962-TC; A6402; Z7610 ==

== ENCOUNTER 2018-02-01 14:00 | Outpatient (CLI) | payer MEDICARE, MEDICAID | END 2018-02-01 23:59 | disposition home or self-care (01) | LOC: WOU 14:00 | PROVIDERS: ATTEND Podiatrist Foot & Ankle Surgery | DX: I87.2 Venous insufficiency (chronic) (peripheral) (principal); L97.318 Non-pressure chronic ulcer of right ankle with other specified severity; L97.812 Non-pressure chronic ulcer of other part of right lower leg with fat layer exposed; L97.822 Non-pressure chronic ulcer of other part of left lower leg with fat layer exposed; I10 Essential (primary) hypertension; R60.9 Edema, unspecified; Z86.718 Personal history of other venous thrombosis and embolism; Z79.891 Long term (current) use of opiate analgesic; Z79.01 Long term (current) use of anticoagulants | CPT/HCPCS: 11042; 11045; 82962; A6402 ×2; Z7610 ==

== ENCOUNTER 2018-02-15 14:07 | Outpatient (CLI) | payer MEDICARE, MEDICAID | END 2018-02-15 23:59 | disposition home or self-care (01) | LOC: WOU 14:07 | PROVIDERS: ATTEND Podiatrist Foot & Ankle Surgery | DX: I87.2 Venous insufficiency (chronic) (peripheral) (principal); L97.822 Non-pressure chronic ulcer of other part of left lower leg with fat layer exposed; L97.812 Non-pressure chronic ulcer of other part of right lower leg with fat layer exposed; L97.312 Non-pressure chronic ulcer of right ankle with fat layer exposed; Z86.718 Personal history of other venous thrombosis and embolism; T82.59 Other mechanical complication of other cardiac and vascular devices and implants; I25.10 Atherosclerotic heart disease of native coronary artery without angina pectoris; R60.0 Localized edema; Z79.01 Long term (current) use of anticoagulants | CPT/HCPCS: 11042; 11045; A6402; Z7610 ==

== ENCOUNTER 2018-02-25 14:15 | Outpatient (CLI) | payer MEDICARE, OTHER ==
[~2018-02-25 14:15] MED LIST changes: +HYDR-4354 PO; -HYDR-548 PO
[2018-04-08] MEDS ORDERED: IRBESARTAN/HCTZ PO (15:42)
[2018-04-08] MEDS ORDERED: CARV12.52 PO (15:42)
[2018-04-08] MEDS ORDERED: LEVO112T7 PO (15:42)
[2018-04-08] MEDS ORDERED: MAGN400T26 PO (15:42)
[2018-04-08] MEDS ORDERED: ATOR40TA PO (15:42)
[2018-04-08] MEDS ORDERED: APIX5TAB PO (15:42)
[2018-04-08] MEDS ORDERED: OMEG-72 PO (15:42)
== END 2018-02-25 23:59 | disposition home or self-care (01) ==
LOC: WOU 14:15
PROVIDERS: ATTEND Podiatrist Foot & Ankle Surgery
DX: I87.2 Venous insufficiency (chronic) (peripheral) (principal); L97.822 Non-pressure chronic ulcer of other part of left lower leg with fat layer exposed; L97.812 Non-pressure chronic ulcer of other part of right lower leg with fat layer exposed; L97.312 Non-pressure chronic ulcer of right ankle with fat layer exposed; Z86.718 Personal history of other venous thrombosis and embolism; Z79.01 Long term (current) use of anticoagulants; T82.898D Other specified complication of vascular prosthetic devices, implants and grafts, subsequent encounter; I25.10 Atherosclerotic heart disease of native coronary artery without angina pectoris; R60.0 Localized edema; L84 Corns and callosities
CPT/HCPCS: 11042; 11045; A6402; Z7610

== ENCOUNTER 2018-03-15 13:50 | Outpatient (CLI) | payer MEDICARE, MEDICAID ==
[2018-04-08] MEDS ORDERED: IRBESARTAN/HCTZ PO (15:42)
[2018-04-08] MEDS ORDERED: LEVO112T7 PO (15:42)
[2018-04-08] MEDS ORDERED: APIX5TAB PO (15:42)
[2018-04-08] MEDS ORDERED: ATOR40TA PO (15:42)
[2018-04-08] MEDS ORDERED: MAGN400T26 PO (15:42)
[2018-04-08] MEDS ORDERED: CARV12.52 PO (15:42)
[2018-04-08] MEDS ORDERED: OMEG-72 PO (15:42)
== END 2018-03-15 23:59 | disposition home or self-care (01) ==
LOC: WOU 13:50
PROVIDERS: ATTEND Podiatrist Foot & Ankle Surgery
DX: I87.2 Venous insufficiency (chronic) (peripheral) (principal); L97.812 Non-pressure chronic ulcer of other part of right lower leg with fat layer exposed; L97.312 Non-pressure chronic ulcer of right ankle with fat layer exposed; L97.822 Non-pressure chronic ulcer of other part of left lower leg with fat layer exposed; R60.9 Edema, unspecified; B35.3 Tinea pedis; B35.1 Tinea unguium; Z86.718 Personal history of other venous thrombosis and embolism; Z79.01 Long term (current) use of anticoagulants; T82.898D Other specified complication of vascular prosthetic devices, implants and grafts, subsequent encounter
CPT/HCPCS: 17250 ×2; A6402 ×2; Z7610

== ENCOUNTER 2018-05-13 13:26 | Outpatient (CLI) | payer MEDICARE, OTHER ==
[~2018-05-13 13:26] MED LIST changes: -ANDRODERM PATCH TD; +APIX5TAB PO; +ATOR40TA PO; +CARV12.52 PO; -COLC0.6T67 PO; -DIAZ5TAB4 PO; -ENOX80DI SQ; -ESOM20CA PO; -LEVO100T9 PO; +LEVO112T7 PO; -LOSA100T15 PO; +MAGN400T26 PO; +OMEG-72 PO; -TADA5TAB2 PO; -WARF1TAB47 PO
== END 2018-05-13 23:59 | disposition home or self-care (01) ==
LOC: WOU 13:26
PROVIDERS: ATTEND Podiatrist Foot & Ankle Surgery
DX: I87.2 Venous insufficiency (chronic) (peripheral) (principal); L97.312 Non-pressure chronic ulcer of right ankle with fat layer exposed; L97.822 Non-pressure chronic ulcer of other part of left lower leg with fat layer exposed; L97.812 Non-pressure chronic ulcer of other part of right lower leg with fat layer exposed; I25.10 Atherosclerotic heart disease of native coronary artery without angina pectoris; I10 Essential (primary) hypertension; E11.9 Type 2 diabetes mellitus without complications; E03.9 Hypothyroidism, unspecified; J44.9 Chronic obstructive pulmonary disease, unspecified; I82.211 Chronic embolism and thrombosis of superior vena cava; Z87.891 Personal history of nicotine dependence; T82.59 Other mechanical complication of other cardiac and vascular devices and implants; Z79.01 Long term (current) use of anticoagulants; Z79.84 Long term (current) use of oral hypoglycemic drugs
CPT/HCPCS: 11042; 11045; A6402; Z7610

== ENCOUNTER 2018-06-10 12:00 | Outpatient (CLI) | payer MEDICARE, OTHER | END 2018-06-10 23:59 | disposition home or self-care (01) | LOC: WOU 12:00 | PROVIDERS: ATTEND Podiatrist Foot & Ankle Surgery | DX: I87.2 Venous insufficiency (chronic) (peripheral) (principal); L97.312 Non-pressure chronic ulcer of right ankle with fat layer exposed; Z79.84 Long term (current) use of oral hypoglycemic drugs; Z79.899 Other long term (current) drug therapy; R42 Dizziness and giddiness; Z86.718 Personal history of other venous thrombosis and embolism; T82.59 Other mechanical complication of other cardiac and vascular devices and implants | CPT/HCPCS: 11042; A6402 ×2; G0463; Z7610 ==

== ENCOUNTER 2018-07-22 12:00 | Outpatient (CLI) | payer MEDICARE, MEDICAID | END 2018-07-22 23:59 | disposition home or self-care (01) | LOC: WOU 12:00 | PROVIDERS: ATTEND Podiatrist Foot & Ankle Surgery | DX: I87.2 Venous insufficiency (chronic) (peripheral) (principal); L97.312 Non-pressure chronic ulcer of right ankle with fat layer exposed; L97.818 Non-pressure chronic ulcer of other part of right lower leg with other specified severity; R60.0 Localized edema; Z86.718 Personal history of other venous thrombosis and embolism; Z79.01 Long term (current) use of anticoagulants; Z79.84 Long term (current) use of oral hypoglycemic drugs; T82.59 Other mechanical complication of other cardiac and vascular devices and implants | CPT/HCPCS: 17250 ×2; A6402 ==

== ENCOUNTER 2018-08-02 11:50 | Outpatient (CLI) | payer MEDICARE, MEDICAID | END 2018-08-02 23:59 | disposition home or self-care (01) | LOC: WOU 11:50 | PROVIDERS: ATTEND Podiatrist Foot & Ankle Surgery | DX: I87.2 Venous insufficiency (chronic) (peripheral) (principal); L97.312 Non-pressure chronic ulcer of right ankle with fat layer exposed; L97.812 Non-pressure chronic ulcer of other part of right lower leg with fat layer exposed; R60.0 Localized edema; Z79.01 Long term (current) use of anticoagulants; Z79.84 Long term (current) use of oral hypoglycemic drugs; Z79.891 Long term (current) use of opiate analgesic | CPT/HCPCS: 17250; A6402 ==

== ENCOUNTER 2018-08-09 12:12 | Outpatient (CLI) | payer MEDICARE, MEDICAID | END 2018-08-09 23:59 | disposition home or self-care (01) | LOC: WOU 12:12 | PROVIDERS: ATTEND Podiatrist Foot & Ankle Surgery | DX: I87.2 Venous insufficiency (chronic) (peripheral) (principal); L97.312 Non-pressure chronic ulcer of right ankle with fat layer exposed; L97.512 Non-pressure chronic ulcer of other part of right foot with fat layer exposed; L97.822 Non-pressure chronic ulcer of other part of left lower leg with fat layer exposed; R60.0 Localized edema; Z79.01 Long term (current) use of anticoagulants; Z79.891 Long term (current) use of opiate analgesic; Z79.84 Long term (current) use of oral hypoglycemic drugs | CPT/HCPCS: 17250 ×2; 82962; A6402 ==

== ENCOUNTER 2018-08-16 12:20 | Outpatient (CLI) | payer MEDICARE, MEDICAID | END 2018-08-16 23:59 | disposition home or self-care (01) | LOC: WOU 12:20 | PROVIDERS: ATTEND Podiatrist Foot & Ankle Surgery | DX: I87.2 Venous insufficiency (chronic) (peripheral) (principal); L97.312 Non-pressure chronic ulcer of right ankle with fat layer exposed; L97.822 Non-pressure chronic ulcer of other part of left lower leg with fat layer exposed; L97.812 Non-pressure chronic ulcer of other part of right lower leg with fat layer exposed; R60.0 Localized edema; Z79.01 Long term (current) use of anticoagulants; Z79.891 Long term (current) use of opiate analgesic; Z86.718 Personal history of other venous thrombosis and embolism; T82.898D Other specified complication of vascular prosthetic devices, implants and grafts, subsequent encounter | CPT/HCPCS: 17250; A6402 ==

== ENCOUNTER 2018-08-23 12:15 | Outpatient (CLI) | payer MEDICARE, MEDICAID | END 2018-08-23 23:59 | disposition home or self-care (01) | LOC: WOU 12:15 | PROVIDERS: ATTEND Podiatrist Foot & Ankle Surgery | DX: I87.2 Venous insufficiency (chronic) (peripheral) (principal); L97.312 Non-pressure chronic ulcer of right ankle with fat layer exposed; L97.822 Non-pressure chronic ulcer of other part of left lower leg with fat layer exposed; L97.812 Non-pressure chronic ulcer of other part of right lower leg with fat layer exposed; R60.0 Localized edema; Z79.01 Long term (current) use of anticoagulants; I25.10 Atherosclerotic heart disease of native coronary artery without angina pectoris; Z86.718 Personal history of other venous thrombosis and embolism; T82.898D Other specified complication of vascular prosthetic devices, implants and grafts, subsequent encounter | CPT/HCPCS: 11042; 11045; 17250 ×2; A6402 ×2 ==

== ENCOUNTER 2018-08-30 12:15 | Outpatient (CLI) | payer MEDICARE, MEDICAID | END 2018-08-30 23:59 | disposition home or self-care (01) | LOC: WOU 12:15 | PROVIDERS: ATTEND Podiatrist Foot & Ankle Surgery | DX: I87.2 Venous insufficiency (chronic) (peripheral) (principal); L97.212 Non-pressure chronic ulcer of right calf with fat layer exposed; L97.312 Non-pressure chronic ulcer of right ankle with fat layer exposed; L97.822 Non-pressure chronic ulcer of other part of left lower leg with fat layer exposed; M79.81 Nontraumatic hematoma of soft tissue | CPT/HCPCS: 10140; 17250 ×2; A6402 ==

== ENCOUNTER 2018-09-06 11:15 | Outpatient (CLI) | payer MEDICARE, MEDICAID | END 2018-09-06 23:59 | disposition home or self-care (01) | LOC: WOU 11:15 | PROVIDERS: ATTEND Podiatrist Foot & Ankle Surgery | DX: I87.2 Venous insufficiency (chronic) (peripheral) (principal); L97.312 Non-pressure chronic ulcer of right ankle with fat layer exposed; L97.822 Non-pressure chronic ulcer of other part of left lower leg with fat layer exposed; L97.812 Non-pressure chronic ulcer of other part of right lower leg with fat layer exposed; T82.898D Other specified complication of vascular prosthetic devices, implants and grafts, subsequent encounter; S91.105D Unspecified open wound of left lesser toe(s) without damage to nail, subsequent encounter; X58.XXXD Exposure to other specified factors, subsequent encounter; R60.0 Localized edema; Z79.01 Long term (current) use of anticoagulants | CPT/HCPCS: 17250 ×2; 82962; A6402 ==

== ENCOUNTER 2018-09-13 13:50 | Outpatient (CLI) | payer MEDICARE, MEDICAID | END 2018-09-13 23:59 | disposition home or self-care (01) | LOC: WOU 13:50 | PROVIDERS: ATTEND Podiatrist Foot & Ankle Surgery | DX: I87.2 Venous insufficiency (chronic) (peripheral) (principal); L97.312 Non-pressure chronic ulcer of right ankle with fat layer exposed; L97.522 Non-pressure chronic ulcer of other part of left foot with fat layer exposed; L97.512 Non-pressure chronic ulcer of other part of right foot with fat layer exposed; R60.0 Localized edema; B35.1 Tinea unguium; B35.9 Dermatophytosis, unspecified; Z79.01 Long term (current) use of anticoagulants; Z79.899 Other long term (current) drug therapy | CPT/HCPCS: 17250 ×2; A6402 ×2; J3490 ==

== ENCOUNTER 2018-09-27 11:29 | Outpatient (CLI) | payer MEDICARE, MEDICAID | END 2018-09-27 23:59 | disposition home or self-care (01) | LOC: WOU 11:29 | PROVIDERS: ATTEND Podiatrist Foot & Ankle Surgery | DX: I87.2 Venous insufficiency (chronic) (peripheral) (principal); L97.312 Non-pressure chronic ulcer of right ankle with fat layer exposed; L97.822 Non-pressure chronic ulcer of other part of left lower leg with fat layer exposed; L97.812 Non-pressure chronic ulcer of other part of right lower leg with fat layer exposed; B35.3 Tinea pedis; R52 Pain, unspecified; R60.9 Edema, unspecified | CPT/HCPCS: 11042; A6402 ==

== ENCOUNTER 2018-10-04 12:08 | Outpatient (CLI) | payer MEDICARE, MEDICAID | END 2018-10-04 23:59 | disposition home or self-care (01) | LOC: WOU 12:08 | PROVIDERS: ATTEND Podiatrist Foot & Ankle Surgery | DX: I87.2 Venous insufficiency (chronic) (peripheral) (principal); L97.312 Non-pressure chronic ulcer of right ankle with fat layer exposed; L97.822 Non-pressure chronic ulcer of other part of left lower leg with fat layer exposed; L97.812 Non-pressure chronic ulcer of other part of right lower leg with fat layer exposed; B35.1 Tinea unguium; B35.9 Dermatophytosis, unspecified; R60.9 Edema, unspecified; M20.40 Other hammer toe(s) (acquired), unspecified foot; L84 Corns and callosities; Z79.01 Long term (current) use of anticoagulants; Z79.899 Other long term (current) drug therapy | CPT/HCPCS: 17250 ×2; A6402 ×2 ==

== ENCOUNTER 2018-10-11 13:00 | Outpatient (CLI) | payer MEDICARE, MEDICAID | END 2018-10-11 23:59 | disposition home or self-care (01) | LOC: WOU 13:00 | PROVIDERS: ATTEND Podiatrist Foot & Ankle Surgery | DX: I87.2 Venous insufficiency (chronic) (peripheral) (principal); L97.312 Non-pressure chronic ulcer of right ankle with fat layer exposed; L97.812 Non-pressure chronic ulcer of other part of right lower leg with fat layer exposed; B35.3 Tinea pedis; B35.1 Tinea unguium; R60.0 Localized edema; M20.40 Other hammer toe(s) (acquired), unspecified foot; L84 Corns and callosities; E11.9 Type 2 diabetes mellitus without complications; Z79.84 Long term (current) use of oral hypoglycemic drugs; Z79.01 Long term (current) use of anticoagulants; Z79.899 Other long term (current) drug therapy | CPT/HCPCS: 17250; A6402 ==

== ENCOUNTER 2018-10-18 11:50 | Outpatient (CLI) | payer MEDICARE, MEDICAID | END 2018-10-18 23:59 | disposition home or self-care (01) | LOC: WOU 11:50 | PROVIDERS: ATTEND Podiatrist Foot & Ankle Surgery | DX: I87.2 Venous insufficiency (chronic) (peripheral) (principal); L97.312 Non-pressure chronic ulcer of right ankle with fat layer exposed; R60.0 Localized edema; Z79.01 Long term (current) use of anticoagulants; Z79.84 Long term (current) use of oral hypoglycemic drugs; Z79.899 Other long term (current) drug therapy | CPT/HCPCS: 11042; A6402 ==

== ENCOUNTER 2018-10-25 12:30 | Outpatient (CLI) | payer MEDICARE, MEDICAID | END 2018-10-25 23:59 | disposition home or self-care (01) | LOC: WOU 12:30 | PROVIDERS: ATTEND Podiatrist Foot & Ankle Surgery | DX: I87.2 Venous insufficiency (chronic) (peripheral) (principal); L97.312 Non-pressure chronic ulcer of right ankle with fat layer exposed; L97.812 Non-pressure chronic ulcer of other part of right lower leg with fat layer exposed; L97.528 Non-pressure chronic ulcer of other part of left foot with other specified severity; R60.0 Localized edema; L30.9 Dermatitis, unspecified; Z79.01 Long term (current) use of anticoagulants | CPT/HCPCS: 11042; A6402 ==

== ENCOUNTER 2018-11-01 11:30 | Outpatient (CLI) | payer MEDICARE, MEDICAID | END 2018-11-01 23:59 | disposition home or self-care (01) | LOC: WOU 11:30 | PROVIDERS: ATTEND Podiatrist Foot & Ankle Surgery | DX: I87.2 Venous insufficiency (chronic) (peripheral) (principal); L97.312 Non-pressure chronic ulcer of right ankle with fat layer exposed; L97.812 Non-pressure chronic ulcer of other part of right lower leg with fat layer exposed; L97.528 Non-pressure chronic ulcer of other part of left foot with other specified severity; R60.0 Localized edema; Z86.718 Personal history of other venous thrombosis and embolism; Z79.01 Long term (current) use of anticoagulants; Z87.2 Personal history of diseases of the skin and subcutaneous tissue | CPT/HCPCS: 17250 ×2; A6402 ×2 ==

== ENCOUNTER 2018-11-29 12:10 | Outpatient (CLI) | payer MEDICARE, OTHER | END 2018-11-29 23:59 | disposition home or self-care (01) | LOC: WOU 12:10 | PROVIDERS: ATTEND Podiatrist Foot & Ankle Surgery | DX: I87.2 Venous insufficiency (chronic) (peripheral) (principal); L97.312 Non-pressure chronic ulcer of right ankle with fat layer exposed; L97.812 Non-pressure chronic ulcer of other part of right lower leg with fat layer exposed; L97.518 Non-pressure chronic ulcer of other part of right foot with other specified severity; R60.0 Localized edema; Z86.718 Personal history of other venous thrombosis and embolism; Z87.2 Personal history of diseases of the skin and subcutaneous tissue; E11.9 Type 2 diabetes mellitus without complications; Z79.84 Long term (current) use of oral hypoglycemic drugs; Z79.01 Long term (current) use of anticoagulants; Z79.899 Other long term (current) drug therapy | CPT/HCPCS: 11042; A6402 ×2 ==

== ENCOUNTER 2018-12-13 13:10 | Outpatient (CLI) | payer MEDICARE, OTHER | END 2018-12-13 23:59 | disposition home or self-care (01) | LOC: WOU 13:10 | PROVIDERS: ATTEND Podiatrist Foot & Ankle Surgery | DX: I87.311 Chronic venous hypertension (idiopathic) with ulcer of right lower extremity (principal); L97.312 Non-pressure chronic ulcer of right ankle with fat layer exposed; L97.812 Non-pressure chronic ulcer of other part of right lower leg with fat layer exposed; L97.518 Non-pressure chronic ulcer of other part of right foot with other specified severity; R60.1 Generalized edema; Z79.01 Long term (current) use of anticoagulants; Z79.899 Other long term (current) drug therapy; Z86.718 Personal history of other venous thrombosis and embolism | CPT/HCPCS: 11042; 11045; A6402 ==

== ENCOUNTER 2018-12-20 12:55 | Outpatient (CLI) | payer MEDICARE, OTHER | END 2018-12-20 23:59 | disposition home or self-care (01) | LOC: WOU 12:55 | PROVIDERS: ATTEND Podiatrist Foot & Ankle Surgery | DX: I87.313 Chronic venous hypertension (idiopathic) with ulcer of bilateral lower extremity (principal); L97.312 Non-pressure chronic ulcer of right ankle with fat layer exposed; L97.822 Non-pressure chronic ulcer of other part of left lower leg with fat layer exposed; L97.812 Non-pressure chronic ulcer of other part of right lower leg with fat layer exposed; R60.1 Generalized edema; Z86.718 Personal history of other venous thrombosis and embolism; I10 Essential (primary) hypertension; E11.9 Type 2 diabetes mellitus without complications; Z79.01 Long term (current) use of anticoagulants; Z79.84 Long term (current) use of oral hypoglycemic drugs | CPT/HCPCS: 11042; 11045 ==

== ENCOUNTER 2018-12-27 12:20 | Outpatient (CLI) | payer MEDICARE, OTHER | END 2018-12-27 23:59 | disposition home or self-care (01) | LOC: WOU 12:20 | PROVIDERS: ATTEND Podiatrist Foot & Ankle Surgery | DX: I87.313 Chronic venous hypertension (idiopathic) with ulcer of bilateral lower extremity (principal); L97.312 Non-pressure chronic ulcer of right ankle with fat layer exposed; L97.822 Non-pressure chronic ulcer of other part of left lower leg with fat layer exposed; L97.812 Non-pressure chronic ulcer of other part of right lower leg with fat layer exposed; E11.621 Type 2 diabetes mellitus with foot ulcer; L97.522 Non-pressure chronic ulcer of other part of left foot with fat layer exposed; Z79.01 Long term (current) use of anticoagulants; Z79.84 Long term (current) use of oral hypoglycemic drugs; Z79.899 Other long term (current) drug therapy; Z86.718 Personal history of other venous thrombosis and embolism | CPT/HCPCS: 11042; 17250 ==

== ENCOUNTER 2019-01-06 12:00 | Outpatient (CLI) | payer MEDICARE, OTHER | END 2019-01-06 23:59 | disposition home or self-care (01) | LOC: WOU 12:00 | PROVIDERS: ATTEND Podiatrist Foot & Ankle Surgery | DX: I87.311 Chronic venous hypertension (idiopathic) with ulcer of right lower extremity (principal); L97.312 Non-pressure chronic ulcer of right ankle with fat layer exposed; L97.822 Non-pressure chronic ulcer of other part of left lower leg with fat layer exposed; L97.812 Non-pressure chronic ulcer of other part of right lower leg with fat layer exposed; E11.621 Type 2 diabetes mellitus with foot ulcer; L97.522 Non-pressure chronic ulcer of other part of left foot with fat layer exposed; E11.69 Type 2 diabetes mellitus with other specified complication; M86.172 Other acute osteomyelitis, left ankle and foot; Z86.718 Personal history of other venous thrombosis and embolism; T82.59 Other mechanical complication of other cardiac and vascular devices and implants; Z87.891 Personal history of nicotine dependence; Z83.3 Family history of diabetes mellitus; Z79.84 Long term (current) use of oral hypoglycemic drugs; Z79.899 Other long term (current) drug therapy; Z79.01 Long term (current) use of anticoagulants | CPT/HCPCS: 11042; 11045; A6253 ==

== ENCOUNTER 2019-01-24 12:30 | Outpatient (CLI) | payer MEDICARE, OTHER | END 2019-01-24 23:59 | disposition home or self-care (01) | DX: I87.313 Chronic venous hypertension (idiopathic) with ulcer of bilateral lower extremity (principal); L97.312 Non-pressure chronic ulcer of right ankle with fat layer exposed; L97.812 Non-pressure chronic ulcer of other part of right lower leg with fat layer exposed; L97.522 Non-pressure chronic ulcer of other part of left foot with fat layer exposed; E11.621 Type 2 diabetes mellitus with foot ulcer; E11.69 Type 2 diabetes mellitus with other specified complication; M86.172 Other acute osteomyelitis, left ankle and foot; Z79.84 Long term (current) use of oral hypoglycemic drugs; Z79.899 Other long term (current) drug therapy; Z79.01 Long term (current) use of anticoagulants; Z86.718 Personal history of other venous thrombosis and embolism ==

== ENCOUNTER 2019-02-02 13:36 | Outpatient (CLI) | payer MEDICARE, OTHER | END 2019-02-02 23:59 | disposition home or self-care (01) | LOC: CARD 13:36 | PROVIDERS: ATTEND Podiatrist Foot & Ankle Surgery | DX: I73.9 Peripheral vascular disease, unspecified (principal); M79.605 Pain in left leg; M79.604 Pain in right leg ==

== ENCOUNTER 2019-02-03 12:55 | Outpatient (CLI) | payer MEDICARE, OTHER | END 2019-02-03 23:59 | disposition home or self-care (01) | LOC: WOU 12:55 | PROVIDERS: ATTEND Podiatrist Foot & Ankle Surgery | DX: E11.621 Type 2 diabetes mellitus with foot ulcer (principal); L97.522 Non-pressure chronic ulcer of other part of left foot with fat layer exposed; I87.311 Chronic venous hypertension (idiopathic) with ulcer of right lower extremity; L97.312 Non-pressure chronic ulcer of right ankle with fat layer exposed; L97.822 Non-pressure chronic ulcer of other part of left lower leg with fat layer exposed; Z87.891 Personal history of nicotine dependence | CPT/HCPCS: 11042; 11043 ==

== ENCOUNTER 2019-03-21 12:40 | Outpatient (CLI) | payer MEDICARE, OTHER ==
[~2019-03-21 12:40] MED LIST changes: -GLIM1TAB2 PO; +GLIM1TAB3 PO
== END 2019-03-21 23:59 | disposition home or self-care (01) ==
LOC: WOU 12:40
PROVIDERS: ATTEND Podiatrist Foot & Ankle Surgery
DX: I87.313 Chronic venous hypertension (idiopathic) with ulcer of bilateral lower extremity (principal); L97.312 Non-pressure chronic ulcer of right ankle with fat layer exposed; L97.812 Non-pressure chronic ulcer of other part of right lower leg with fat layer exposed; L97.822 Non-pressure chronic ulcer of other part of left lower leg with fat layer exposed; E11.621 Type 2 diabetes mellitus with foot ulcer; L97.528 Non-pressure chronic ulcer of other part of left foot with other specified severity; L03.116 Cellulitis of left lower limb; Z86.718 Personal history of other venous thrombosis and embolism; E11.69 Type 2 diabetes mellitus with other specified complication; M86.172 Other acute osteomyelitis, left ankle and foot; E11.42 Type 2 diabetes mellitus with diabetic polyneuropathy; E11.51 Type 2 diabetes mellitus with diabetic peripheral angiopathy without gangrene; I87.2 Venous insufficiency (chronic) (peripheral)
CPT/HCPCS: 11042; 11043

== ENCOUNTER 2019-04-04 12:40 | Outpatient (CLI) | payer MEDICARE, OTHER ==
[~2019-04-04 12:40] MED LIST changes: +GLIM1TAB2 PO; -GLIM1TAB3 PO
== END 2019-04-04 23:59 | disposition home or self-care (01) ==
LOC: WOU 12:40
PROVIDERS: ATTEND Podiatrist Foot & Ankle Surgery
DX: I87.313 Chronic venous hypertension (idiopathic) with ulcer of bilateral lower extremity (principal); L97.322 Non-pressure chronic ulcer of left ankle with fat layer exposed; L97.822 Non-pressure chronic ulcer of other part of left lower leg with fat layer exposed; L97.812 Non-pressure chronic ulcer of other part of right lower leg with fat layer exposed; L03.116 Cellulitis of left lower limb; E11.69 Type 2 diabetes mellitus with other specified complication; M86.172 Other acute osteomyelitis, left ankle and foot; E11.42 Type 2 diabetes mellitus with diabetic polyneuropathy; E11.51 Type 2 diabetes mellitus with diabetic peripheral angiopathy without gangrene; I87.2 Venous insufficiency (chronic) (peripheral); Z86.718 Personal history of other venous thrombosis and embolism; Z87.891 Personal history of nicotine dependence
CPT/HCPCS: 11042; 11045

== ENCOUNTER 2019-04-12 12:38 | Outpatient (CLI) | payer MEDICARE, OTHER ==
[~2019-04-12 12:38] MED LIST changes: -GLIM1TAB2 PO; +GLIM1TAB3 PO
== END 2019-04-12 23:59 | disposition home or self-care (01) ==
LOC: WOU 12:38
PROVIDERS: ATTEND Podiatrist Foot & Ankle Surgery
DX: I87.313 Chronic venous hypertension (idiopathic) with ulcer of bilateral lower extremity (principal); L97.312 Non-pressure chronic ulcer of right ankle with fat layer exposed; L97.822 Non-pressure chronic ulcer of other part of left lower leg with fat layer exposed; L97.812 Non-pressure chronic ulcer of other part of right lower leg with fat layer exposed; Z86.718 Personal history of other venous thrombosis and embolism; E11.42 Type 2 diabetes mellitus with diabetic polyneuropathy; E11.51 Type 2 diabetes mellitus with diabetic peripheral angiopathy without gangrene; L03.116 Cellulitis of left lower limb
CPT/HCPCS: 11042

== ENCOUNTER 2019-04-18 12:30 | Outpatient (CLI) | payer MEDICARE, OTHER | END 2019-04-18 23:59 | disposition home or self-care (01) | LOC: VASLAB 12:30 | PROVIDERS: ATTEND Surgery Vascular Surgery | DX: I87.313 Chronic venous hypertension (idiopathic) with ulcer of bilateral lower extremity (principal); L97.312 Non-pressure chronic ulcer of right ankle with fat layer exposed; L97.822 Non-pressure chronic ulcer of other part of left lower leg with fat layer exposed; L97.812 Non-pressure chronic ulcer of other part of right lower leg with fat layer exposed; I87.2 Venous insufficiency (chronic) (peripheral); I65.21 Occlusion and stenosis of right carotid artery; Z79.01 Long term (current) use of anticoagulants; E11.42 Type 2 diabetes mellitus with diabetic polyneuropathy; E11.51 Type 2 diabetes mellitus with diabetic peripheral angiopathy without gangrene; Z86.718 Personal history of other venous thrombosis and embolism | CPT/HCPCS: G0463 ==

== ENCOUNTER 2019-05-02 12:35 | Outpatient (CLI) | payer MEDICARE, OTHER ==
[~2019-05-02 12:35] MED LIST changes: +GLIM1TAB18 PO; -GLIM1TAB3 PO
== END 2019-05-02 23:59 | disposition home or self-care (01) ==
LOC: WOU 12:35
PROVIDERS: ATTEND Podiatrist Foot & Ankle Surgery
DX: I87.313 Chronic venous hypertension (idiopathic) with ulcer of bilateral lower extremity (principal); L97.312 Non-pressure chronic ulcer of right ankle with fat layer exposed; L97.822 Non-pressure chronic ulcer of other part of left lower leg with fat layer exposed; L97.812 Non-pressure chronic ulcer of other part of right lower leg with fat layer exposed; E11.69 Type 2 diabetes mellitus with other specified complication; E11.51 Type 2 diabetes mellitus with diabetic peripheral angiopathy without gangrene; E11.42 Type 2 diabetes mellitus with diabetic polyneuropathy; M86.172 Other acute osteomyelitis, left ankle and foot; L03.116 Cellulitis of left lower limb; B95.62 Methicillin resistant Staphylococcus aureus infection as the cause of diseases classified elsewhere; I87.2 Venous insufficiency (chronic) (peripheral); I73.9 Peripheral vascular disease, unspecified; Z86.718 Personal history of other venous thrombosis and embolism
CPT/HCPCS: 11042; 11045; 82962; 87070; 87075; 87102; A6197

== ENCOUNTER 2019-05-09 12:30 | Outpatient (CLI) | payer MEDICARE, OTHER ==
[~2019-05-09 12:30] MED LIST changes: -GLIM1TAB18 PO; +GLIM1TAB3 PO
== END 2019-05-09 23:59 | disposition home or self-care (01) ==
LOC: WOU 12:30
PROVIDERS: ATTEND Podiatrist Foot & Ankle Surgery
DX: I87.313 Chronic venous hypertension (idiopathic) with ulcer of bilateral lower extremity (principal); L97.312 Non-pressure chronic ulcer of right ankle with fat layer exposed; L97.822 Non-pressure chronic ulcer of other part of left lower leg with fat layer exposed; L97.812 Non-pressure chronic ulcer of other part of right lower leg with fat layer exposed; E11.51 Type 2 diabetes mellitus with diabetic peripheral angiopathy without gangrene; E11.69 Type 2 diabetes mellitus with other specified complication; E11.42 Type 2 diabetes mellitus with diabetic polyneuropathy; M86.172 Other acute osteomyelitis, left ankle and foot; L03.116 Cellulitis of left lower limb; I87.2 Venous insufficiency (chronic) (peripheral); Z86.718 Personal history of other venous thrombosis and embolism
CPT/HCPCS: 11042

== ENCOUNTER 2019-05-16 12:45 | Outpatient (CLI) | payer MEDICARE, OTHER | END 2019-05-16 23:59 | disposition home or self-care (01) | LOC: WOU 12:45 | PROVIDERS: ATTEND Podiatrist Foot & Ankle Surgery | DX: I87.313 Chronic venous hypertension (idiopathic) with ulcer of bilateral lower extremity (principal); L97.312 Non-pressure chronic ulcer of right ankle with fat layer exposed; L97.822 Non-pressure chronic ulcer of other part of left lower leg with fat layer exposed; L97.812 Non-pressure chronic ulcer of other part of right lower leg with fat layer exposed; I87.2 Venous insufficiency (chronic) (peripheral); E11.42 Type 2 diabetes mellitus with diabetic polyneuropathy; E11.51 Type 2 diabetes mellitus with diabetic peripheral angiopathy without gangrene; E11.69 Type 2 diabetes mellitus with other specified complication; M86.172 Other acute osteomyelitis, left ankle and foot; L03.116 Cellulitis of left lower limb; Z86.718 Personal history of other venous thrombosis and embolism | CPT/HCPCS: 11042; 11045 ==

== ENCOUNTER 2019-06-06 12:45 | Outpatient (CLI) | payer MEDICARE, OTHER | END 2019-06-06 23:59 | disposition home or self-care (01) | LOC: WOU 12:45 | PROVIDERS: ATTEND Podiatrist Foot & Ankle Surgery | DX: I87.313 Chronic venous hypertension (idiopathic) with ulcer of bilateral lower extremity (principal); L97.312 Non-pressure chronic ulcer of right ankle with fat layer exposed; L97.822 Non-pressure chronic ulcer of other part of left lower leg with fat layer exposed; L97.812 Non-pressure chronic ulcer of other part of right lower leg with fat layer exposed; I87.2 Venous insufficiency (chronic) (peripheral); E11.42 Type 2 diabetes mellitus with diabetic polyneuropathy; E11.51 Type 2 diabetes mellitus with diabetic peripheral angiopathy without gangrene; E11.69 Type 2 diabetes mellitus with other specified complication; M86.172 Other acute osteomyelitis, left ankle and foot; L03.116 Cellulitis of left lower limb; Z86.718 Personal history of other venous thrombosis and embolism | CPT/HCPCS: 11042; 11045 ==

== ENCOUNTER 2019-06-14 12:15 | Outpatient (CLI) | payer MEDICARE, OTHER, MEDICAID ==
[~2019-06-14 12:15] MED LIST changes: +GLIM1TAB18 PO; -GLIM1TAB3 PO
== END 2019-06-14 23:59 | disposition home or self-care (01) ==
LOC: WOU 12:15
PROVIDERS: ATTEND Podiatrist Foot & Ankle Surgery
DX: I87.313 Chronic venous hypertension (idiopathic) with ulcer of bilateral lower extremity (principal); L97.822 Non-pressure chronic ulcer of other part of left lower leg with fat layer exposed; L97.812 Non-pressure chronic ulcer of other part of right lower leg with fat layer exposed; L97.312 Non-pressure chronic ulcer of right ankle with fat layer exposed; Z86.718 Personal history of other venous thrombosis and embolism; T82.59 Other mechanical complication of other cardiac and vascular devices and implants; E11.42 Type 2 diabetes mellitus with diabetic polyneuropathy
CPT/HCPCS: 11042; 11045; 17250

== ENCOUNTER 2019-06-20 12:30 | Outpatient (CLI) | payer MEDICARE, OTHER | END 2019-06-20 23:59 | disposition home or self-care (01) | LOC: WOU 12:30 | PROVIDERS: ATTEND Podiatrist Foot & Ankle Surgery | DX: I87.313 Chronic venous hypertension (idiopathic) with ulcer of bilateral lower extremity (principal); L97.312 Non-pressure chronic ulcer of right ankle with fat layer exposed; L97.822 Non-pressure chronic ulcer of other part of left lower leg with fat layer exposed; L97.812 Non-pressure chronic ulcer of other part of right lower leg with fat layer exposed; M86.172 Other acute osteomyelitis, left ankle and foot; L03.116 Cellulitis of left lower limb; E11.42 Type 2 diabetes mellitus with diabetic polyneuropathy; E11.51 Type 2 diabetes mellitus with diabetic peripheral angiopathy without gangrene; I87.2 Venous insufficiency (chronic) (peripheral); Z86.718 Personal history of other venous thrombosis and embolism | CPT/HCPCS: 11042; 11045 ==

== ENCOUNTER 2019-06-27 12:45 | Outpatient (CLI) | payer MEDICARE, OTHER | END 2019-06-27 23:59 | disposition home or self-care (01) | LOC: WOU 12:45 | PROVIDERS: ATTEND Podiatrist Foot & Ankle Surgery | DX: I87.313 Chronic venous hypertension (idiopathic) with ulcer of bilateral lower extremity (principal); L97.312 Non-pressure chronic ulcer of right ankle with fat layer exposed; L97.822 Non-pressure chronic ulcer of other part of left lower leg with fat layer exposed; L97.812 Non-pressure chronic ulcer of other part of right lower leg with fat layer exposed; I87.2 Venous insufficiency (chronic) (peripheral); E11.42 Type 2 diabetes mellitus with diabetic polyneuropathy; E11.51 Type 2 diabetes mellitus with diabetic peripheral angiopathy without gangrene; Z79.84 Long term (current) use of oral hypoglycemic drugs; Z86.718 Personal history of other venous thrombosis and embolism | CPT/HCPCS: 11042; 11045 ==

== ENCOUNTER 2019-07-04 13:00 | Outpatient (CLI) | payer MEDICARE, OTHER | END 2019-07-04 23:59 | disposition home or self-care (01) | LOC: WOU 13:00 | PROVIDERS: ATTEND Podiatrist Foot & Ankle Surgery | DX: I87.313 Chronic venous hypertension (idiopathic) with ulcer of bilateral lower extremity (principal); L97.312 Non-pressure chronic ulcer of right ankle with fat layer exposed; L97.829 Non-pressure chronic ulcer of other part of left lower leg with unspecified severity; L97.812 Non-pressure chronic ulcer of other part of right lower leg with fat layer exposed; I73.9 Peripheral vascular disease, unspecified; I87.2 Venous insufficiency (chronic) (peripheral); E11.9 Type 2 diabetes mellitus without complications; Z79.84 Long term (current) use of oral hypoglycemic drugs; Z86.718 Personal history of other venous thrombosis and embolism | CPT/HCPCS: 11042 ==

== ENCOUNTER 2019-07-11 12:44 | Outpatient (CLI) | payer MEDICARE, OTHER | END 2019-07-11 23:59 | disposition home or self-care (01) | LOC: WOU 12:44 | PROVIDERS: ATTEND Podiatrist Foot & Ankle Surgery | DX: I87.313 Chronic venous hypertension (idiopathic) with ulcer of bilateral lower extremity (principal); L97.829 Non-pressure chronic ulcer of other part of left lower leg with unspecified severity; L97.812 Non-pressure chronic ulcer of other part of right lower leg with fat layer exposed; E11.42 Type 2 diabetes mellitus with diabetic polyneuropathy; E11.51 Type 2 diabetes mellitus with diabetic peripheral angiopathy without gangrene; Z79.84 Long term (current) use of oral hypoglycemic drugs; I87.2 Venous insufficiency (chronic) (peripheral); Z86.718 Personal history of other venous thrombosis and embolism; Z95.828 Presence of other vascular implants and grafts | CPT/HCPCS: 11042; G0463 ==

== ENCOUNTER 2020-12-11 12:39 | Outpatient (CLI) | payer MEDICARE, OTHER ==
[~2020-12-11 12:39] MED LIST changes: +OMEG-220 PO; -OMEG-72 PO
[2020-12-11] MEDS ORDERED: LIDOCAINE SOLN 4% 50 ML BOTTLE ONE (13:15)
[2020-12-11] MEDS ORDERED: MUPIROCIN 2% CREAM 15 GM TUBE TP ONE (14:12)
[2020-12-11] MEDS ORDERED: TRIAMCINOLONE ACETONIDE 0.1% CR 15 GM TUBE TP ONE (14:12)
== END 2020-12-11 23:59 | disposition home or self-care (01) ==
LOC: WOU 12:39
PROVIDERS: ATTEND Podiatrist Foot & Ankle Surgery
DX: I87.313 Chronic venous hypertension (idiopathic) with ulcer of bilateral lower extremity (principal); L97.822 Non-pressure chronic ulcer of other part of left lower leg with fat layer exposed; L97.812 Non-pressure chronic ulcer of other part of right lower leg with fat layer exposed; I87.2 Venous insufficiency (chronic) (peripheral); B35.1 Tinea unguium; M79.675 Pain in left toe(s); M79.674 Pain in right toe(s); E11.9 Type 2 diabetes mellitus without complications; Z79.84 Long term (current) use of oral hypoglycemic drugs
CPT/HCPCS: G0463

== ENCOUNTER 2020-12-24 13:35 | Outpatient (CLI) | payer MEDICARE, OTHER ==
[~2020-12-24 13:35] MED LIST changes: -OMEG-220 PO; +OMEG-72 PO
== END 2020-12-24 23:59 | disposition home or self-care (01) ==
LOC: WOU 13:35
PROVIDERS: ATTEND Podiatrist Foot & Ankle Surgery
DX: I87.313 Chronic venous hypertension (idiopathic) with ulcer of bilateral lower extremity (principal); L97.822 Non-pressure chronic ulcer of other part of left lower leg with fat layer exposed; L97.818 Non-pressure chronic ulcer of other part of right lower leg with other specified severity; I87.2 Venous insufficiency (chronic) (peripheral); B35.1 Tinea unguium; M79.675 Pain in left toe(s); M79.674 Pain in right toe(s); I95.9 Hypotension, unspecified; E11.9 Type 2 diabetes mellitus without complications; Z79.84 Long term (current) use of oral hypoglycemic drugs
CPT/HCPCS: G0463

== ENCOUNTER 2021-01-01 07:49 | Outpatient (CLI) | payer MEDICARE, OTHER ==
[2021-01-01] MEDS ORDERED: REGADENOSON 0.4 MG/5 ML DISP.SYRIN IVP ONE (08:30)
== END 2021-01-01 23:59 | disposition home or self-care (01) ==
LOC: RAD 07:49
PROVIDERS: ATTEND Internal Medicine Interventional Cardiology
DX: I25.10 Atherosclerotic heart disease of native coronary artery without angina pectoris (principal)
CPT/HCPCS: 78452; A9502; J2785

== ENCOUNTER 2021-01-14 13:08 | Outpatient (CLI) | payer MEDICARE, OTHER ==
[2021-01-14] MEDS ORDERED: MUPIROCIN 2% CREAM 15 GM TUBE TP ONE (13:59)
[2021-01-14] MEDS ORDERED: GENTAMICIN 0.1% CREAM 15 GM TUBE ONE (13:59)
[2021-01-14] MEDS ORDERED: CLOTRIMAZOLE 1% 15 GM TUBE TP ONE (13:59)
== END 2021-01-14 23:59 | disposition home or self-care (01) ==
LOC: WOU 13:08
PROVIDERS: ATTEND Podiatrist Foot & Ankle Surgery
DX: I87.313 Chronic venous hypertension (idiopathic) with ulcer of bilateral lower extremity (principal); L97.822 Non-pressure chronic ulcer of other part of left lower leg with fat layer exposed; L97.812 Non-pressure chronic ulcer of other part of right lower leg with fat layer exposed; E03.9 Hypothyroidism, unspecified; Z87.891 Personal history of nicotine dependence; Z83.3 Family history of diabetes mellitus; Z86.718 Personal history of other venous thrombosis and embolism; Z88.1 Allergy status to other antibiotic agents; I10 Essential (primary) hypertension; J44.9 Chronic obstructive pulmonary disease, unspecified; Z87.01 Personal history of pneumonia (recurrent); B35.1 Tinea unguium; L60.0 Ingrowing nail; R60.1 Generalized edema; M79.675 Pain in left toe(s); M79.674 Pain in right toe(s); Z79.890 Hormone replacement therapy; Z79.84 Long term (current) use of oral hypoglycemic drugs
CPT/HCPCS: 11042; 11045

== ENCOUNTER 2021-02-12 14:35 | Outpatient (CLI) | payer MEDICARE, OTHER ==
[2021-02-12] MEDS ORDERED: MUPIROCIN 2% CREAM 15 GM TUBE TP ONE (15:12)
[2021-02-12] MEDS ORDERED: GENTAMICIN 0.1% CREAM 15 GM TUBE ONE (15:13)
[2021-02-12] MEDS ORDERED: CLOTRIMAZOLE 1% 15 GM TUBE TP ONE (15:14)
== END 2021-02-12 23:59 | disposition home or self-care (01) ==
LOC: WOU 14:35
PROVIDERS: ATTEND Podiatrist Foot & Ankle Surgery
DX: I87.313 Chronic venous hypertension (idiopathic) with ulcer of bilateral lower extremity (principal); L97.822 Non-pressure chronic ulcer of other part of left lower leg with fat layer exposed; L97.812 Non-pressure chronic ulcer of other part of right lower leg with fat layer exposed; I87.2 Venous insufficiency (chronic) (peripheral); B35.1 Tinea unguium; M79.675 Pain in left toe(s); M79.674 Pain in right toe(s); E11.9 Type 2 diabetes mellitus without complications; I10 Essential (primary) hypertension; Z79.84 Long term (current) use of oral hypoglycemic drugs
CPT/HCPCS: 17250

== ENCOUNTER 2021-02-18 14:30 | Outpatient (CLI) | payer MEDICARE, OTHER ==
[2021-02-18] MEDS ORDERED: GENTAMICIN 0.1% CREAM 15 GM TUBE ONE (15:19)
[2021-02-18] MEDS ORDERED: MUPIROCIN 2% CREAM 15 GM TUBE TP ONE (15:20)
[2021-02-18] MEDS ORDERED: CLOTRIMAZOLE 1% 15 GM TUBE TP ONE (15:20)
== END 2021-02-18 23:59 | disposition home or self-care (01) ==
LOC: WOU 14:30
PROVIDERS: ATTEND Podiatrist Foot & Ankle Surgery
DX: I87.313 Chronic venous hypertension (idiopathic) with ulcer of bilateral lower extremity (principal); L97.222 Non-pressure chronic ulcer of left calf with fat layer exposed; L97.312 Non-pressure chronic ulcer of right ankle with fat layer exposed; I87.2 Venous insufficiency (chronic) (peripheral); B35.1 Tinea unguium; M79.675 Pain in left toe(s); M79.674 Pain in right toe(s); R60.1 Generalized edema; L60.0 Ingrowing nail; E11.9 Type 2 diabetes mellitus without complications; Z79.84 Long term (current) use of oral hypoglycemic drugs; I10 Essential (primary) hypertension
CPT/HCPCS: 11042

== ENCOUNTER 2021-02-25 14:10 | Outpatient (CLI) | payer MEDICARE, OTHER ==
[2021-02-25] MEDS ORDERED: CLOTRIMAZOLE 1% 15 GM TUBE TP ONE (14:48)
[2021-02-25] MEDS ORDERED: MUPIROCIN 2% CREAM 15 GM TUBE TP ONE (14:48)
[2021-02-25] MEDS ORDERED: GENTAMICIN 0.1% CREAM 15 GM TUBE ONE (14:49)
== END 2021-02-25 23:59 | disposition home or self-care (01) ==
LOC: WOU 14:10
PROVIDERS: ATTEND Podiatrist Foot & Ankle Surgery
DX: I87.313 Chronic venous hypertension (idiopathic) with ulcer of bilateral lower extremity (principal); L97.822 Non-pressure chronic ulcer of other part of left lower leg with fat layer exposed; L97.812 Non-pressure chronic ulcer of other part of right lower leg with fat layer exposed; I87.2 Venous insufficiency (chronic) (peripheral); I10 Essential (primary) hypertension; B35.1 Tinea unguium; M79.675 Pain in left toe(s); M79.674 Pain in right toe(s); E11.9 Type 2 diabetes mellitus without complications; Z79.84 Long term (current) use of oral hypoglycemic drugs; Z87.891 Personal history of nicotine dependence
CPT/HCPCS: 17250

== ENCOUNTER 2021-03-04 14:00 | Outpatient (CLI) | payer MEDICARE, OTHER ==
[2021-03-04] MEDS ORDERED: GENTAMICIN 0.1% CREAM 15 GM TUBE ONE (14:45)
[2021-03-04] MEDS ORDERED: CLOTRIMAZOLE 1% 15 GM TUBE TP ONE (14:46)
[2021-03-04] MEDS ORDERED: MUPIROCIN 2% CREAM 15 GM TUBE TP ONE (14:47)
== END 2021-03-04 23:59 | disposition home or self-care (01) ==
LOC: WOU 14:00
PROVIDERS: ATTEND Podiatrist Foot & Ankle Surgery
DX: I87.2 Venous insufficiency (chronic) (peripheral) (principal); B35.1 Tinea unguium; R60.1 Generalized edema; L60.0 Ingrowing nail; M79.675 Pain in left toe(s); M79.674 Pain in right toe(s)
CPT/HCPCS: G0463

== ENCOUNTER 2021-03-26 13:43 | Outpatient (CLI) | payer MEDICARE, OTHER ==
[2021-03-26] MEDS ORDERED: MUPIROCIN 2% CREAM 15 GM TUBE TP ONE (14:28)
[2021-03-26] MEDS ORDERED: GENTAMICIN 0.1% CREAM 15 GM TUBE ONE (14:28)
[2021-03-26] MEDS ORDERED: CLOTRIMAZOLE 1% 15 GM TUBE TP ONE (14:29)
== END 2021-03-26 23:59 | disposition home or self-care (01) ==
LOC: WOU 13:43
PROVIDERS: ATTEND Podiatrist Foot & Ankle Surgery
DX: I87.313 Chronic venous hypertension (idiopathic) with ulcer of bilateral lower extremity (principal); L97.828 Non-pressure chronic ulcer of other part of left lower leg with other specified severity; L97.818 Non-pressure chronic ulcer of other part of right lower leg with other specified severity; L97.312 Non-pressure chronic ulcer of right ankle with fat layer exposed; I87.2 Venous insufficiency (chronic) (peripheral); B35.1 Tinea unguium
CPT/HCPCS: G0463

== ENCOUNTER 2021-04-08 14:10 | Outpatient (CLI) | payer MEDICARE, OTHER ==
[2021-04-08] MEDS ORDERED: MUPIROCIN 2% CREAM 15 GM TUBE TP ONE (15:15)
[2021-04-08] MEDS ORDERED: GENTAMICIN 0.1% CREAM 15 GM TUBE ONE (15:15)
[2021-04-08] MEDS ORDERED: CLOTRIMAZOLE 1% 15 GM TUBE TP ONE ×2 (15:16→15:17)
== END 2021-04-08 23:59 | disposition home or self-care (01) ==
LOC: WOU 14:10
PROVIDERS: ATTEND Podiatrist Foot & Ankle Surgery
DX: I87.311 Chronic venous hypertension (idiopathic) with ulcer of right lower extremity (principal); L97.312 Non-pressure chronic ulcer of right ankle with fat layer exposed; L97.812 Non-pressure chronic ulcer of other part of right lower leg with fat layer exposed; I87.2 Venous insufficiency (chronic) (peripheral); B35.1 Tinea unguium; M79.674 Pain in right toe(s); M79.675 Pain in left toe(s); R60.1 Generalized edema; L60.0 Ingrowing nail
CPT/HCPCS: 11042; 11045

== ENCOUNTER 2021-04-15 13:15 | Outpatient (CLI) | payer MEDICARE, OTHER ==
[2021-04-15] MEDS ORDERED: MUPIROCIN 2% CREAM 15 GM TUBE TP ONE (14:00)
[2021-04-15] MEDS ORDERED: GENTAMICIN 0.1% CREAM 15 GM TUBE ONE (14:00)
== END 2021-04-15 23:59 | disposition home or self-care (01) ==
LOC: WOU 13:15
PROVIDERS: ATTEND Podiatrist Foot & Ankle Surgery
DX: I87.311 Chronic venous hypertension (idiopathic) with ulcer of right lower extremity (principal); L97.312 Non-pressure chronic ulcer of right ankle with fat layer exposed; I87.2 Venous insufficiency (chronic) (peripheral); L60.0 Ingrowing nail; B35.1 Tinea unguium; M79.675 Pain in left toe(s); M79.674 Pain in right toe(s); R60.1 Generalized edema
CPT/HCPCS: 11042

== ENCOUNTER 2021-09-17 14:00 | Outpatient (CLI) | payer MEDICARE, OTHER ==
[2021-09-17] MEDS ORDERED: GENTAMICIN 0.1% CREAM 15 GM TUBE ONE (15:43)
[2021-09-17] MEDS ORDERED: MUPIROCIN 2% CREAM 15 GM TUBE TP ONE (15:43)
[2021-09-17] MEDS ORDERED: CLOTRIMAZOLE 1% 15 GM TUBE TP ONE (15:43)
== END 2021-09-17 23:59 | disposition home or self-care (01) ==
LOC: WOU 14:00
PROVIDERS: ATTEND Podiatrist Foot & Ankle Surgery
DX: I87.313 Chronic venous hypertension (idiopathic) with ulcer of bilateral lower extremity (principal); I87.323 Chronic venous hypertension (idiopathic) with inflammation of bilateral lower extremity; L97.822 Non-pressure chronic ulcer of other part of left lower leg with fat layer exposed; L97.812 Non-pressure chronic ulcer of other part of right lower leg with fat layer exposed; L97.312 Non-pressure chronic ulcer of right ankle with fat layer exposed; R60.0 Localized edema; E11.9 Type 2 diabetes mellitus without complications; Z79.84 Long term (current) use of oral hypoglycemic drugs; I10 Essential (primary) hypertension
CPT/HCPCS: 11042; 11045

== ENCOUNTER 2021-10-01 14:05 | Outpatient (CLI) | payer MEDICARE, OTHER ==
[2021-10-01] MEDS ORDERED: LIDOCAINE SOLN 4% 50 ML BOTTLE ONE (15:10)
[2021-10-01] MEDS ORDERED: CLOTRIMAZOLE 1% 15 GM TUBE TP ONE (15:30)
[2021-10-01] MEDS ORDERED: GENTAMICIN 0.1% CREAM 15 GM TUBE ONE (15:30)
[2021-10-01] MEDS ORDERED: MUPIROCIN 2% CREAM 15 GM TUBE TP ONE (15:30)
== END 2021-10-01 23:59 | disposition home or self-care (01) ==
LOC: WOU 14:05
PROVIDERS: ATTEND Podiatrist Foot & Ankle Surgery
DX: I87.333 Chronic venous hypertension (idiopathic) with ulcer and inflammation of bilateral lower extremity (principal); L97.828 Non-pressure chronic ulcer of other part of left lower leg with other specified severity; L97.812 Non-pressure chronic ulcer of other part of right lower leg with fat layer exposed; L97.312 Non-pressure chronic ulcer of right ankle with fat layer exposed; R60.0 Localized edema; E11.9 Type 2 diabetes mellitus without complications; I10 Essential (primary) hypertension; Z79.84 Long term (current) use of oral hypoglycemic drugs; Z79.01 Long term (current) use of anticoagulants
CPT/HCPCS: 11042; 11045

== ENCOUNTER 2021-10-08 14:15 | Outpatient (CLI) | payer MEDICARE, OTHER ==
[2021-10-08] MEDS ORDERED: CLOTRIMAZOLE 1% 15 GM TUBE TP ONE (14:23)
[2021-10-08] MEDS ORDERED: GENTAMICIN 0.1% CREAM 15 GM TUBE ONE (14:23)
[2021-10-08] MEDS ORDERED: MUPIROCIN 2% CREAM 15 GM TUBE TP ONE (14:23)
[2021-10-08] MEDS ORDERED: SILVER NITRATE APPLICATOR 1 EA BOX ONE (15:00)
== END 2021-10-08 23:59 | disposition home or self-care (01) ==
LOC: WOU 14:15
PROVIDERS: ATTEND Podiatrist Foot & Ankle Surgery
DX: I87.333 Chronic venous hypertension (idiopathic) with ulcer and inflammation of bilateral lower extremity (principal); L97.828 Non-pressure chronic ulcer of other part of left lower leg with other specified severity; L97.812 Non-pressure chronic ulcer of other part of right lower leg with fat layer exposed; R60.0 Localized edema; E11.9 Type 2 diabetes mellitus without complications; Z79.84 Long term (current) use of oral hypoglycemic drugs; Z79.01 Long term (current) use of anticoagulants
CPT/HCPCS: 11042; 11045

== ENCOUNTER 2021-10-15 13:58 | Outpatient (CLI) | payer MEDICARE, OTHER ==
[2021-10-15] MEDS ORDERED: SILVER NITRATE APPLICATOR 1 EA BOX ONE (14:36)
[2021-10-15] MEDS ORDERED: CLOTRIMAZOLE 1% 15 GM TUBE TP ONE (14:56)
[2021-10-15] MEDS ORDERED: GENTAMICIN 0.1% CREAM 15 GM TUBE ONE (14:56)
[2021-10-15] MEDS ORDERED: MUPIROCIN 2% CREAM 15 GM TUBE TP ONE (14:56)
== END 2021-10-15 23:59 | disposition home or self-care (01) ==
LOC: WOU 13:58
PROVIDERS: ATTEND Podiatrist Foot & Ankle Surgery
DX: I87.333 Chronic venous hypertension (idiopathic) with ulcer and inflammation of bilateral lower extremity (principal); L97.828 Non-pressure chronic ulcer of other part of left lower leg with other specified severity; L97.812 Non-pressure chronic ulcer of other part of right lower leg with fat layer exposed; T82.59 Other mechanical complication of other cardiac and vascular devices and implants; Y82.8 Other medical devices associated with adverse incidents; E11.9 Type 2 diabetes mellitus without complications; R60.0 Localized edema; Z79.84 Long term (current) use of oral hypoglycemic drugs; Z79.01 Long term (current) use of anticoagulants
CPT/HCPCS: 11042; 17250

== ENCOUNTER 2021-10-22 13:35 | Outpatient (CLI) | payer MEDICARE, OTHER ==
[2021-10-22] MEDS ORDERED: CLOTRIMAZOLE 1% 15 GM TUBE TP ONE (15:08)
[2021-10-22] MEDS ORDERED: MUPIROCIN 2% CREAM 15 GM TUBE TP ONE (15:08)
== END 2021-10-22 23:59 | disposition home or self-care (01) ==
LOC: WOU 13:35
PROVIDERS: ATTEND Podiatrist Foot & Ankle Surgery
DX: I87.333 Chronic venous hypertension (idiopathic) with ulcer and inflammation of bilateral lower extremity (principal); L97.822 Non-pressure chronic ulcer of other part of left lower leg with fat layer exposed; L97.812 Non-pressure chronic ulcer of other part of right lower leg with fat layer exposed; R60.0 Localized edema; Z79.84 Long term (current) use of oral hypoglycemic drugs; E11.9 Type 2 diabetes mellitus without complications; T82.59 Other mechanical complication of other cardiac and vascular devices and implants; Y82.8 Other medical devices associated with adverse incidents; Z79.01 Long term (current) use of anticoagulants
CPT/HCPCS: 11042

== ENCOUNTER 2021-11-19 13:35 | Outpatient (CLI) | payer MEDICARE, OTHER ==
[2021-11-19] MEDS ORDERED: MUPIROCIN 2% CREAM 15 GM TUBE TP ONE (14:49)
[2021-11-19] MEDS ORDERED: GENTAMICIN 0.1% CREAM 15 GM TUBE ONE (14:49)
== END 2021-11-19 23:59 | disposition home or self-care (01) ==
LOC: WOU 13:35
PROVIDERS: ATTEND Podiatrist Foot & Ankle Surgery
DX: I87.333 Chronic venous hypertension (idiopathic) with ulcer and inflammation of bilateral lower extremity (principal); L97.822 Non-pressure chronic ulcer of other part of left lower leg with fat layer exposed; L97.812 Non-pressure chronic ulcer of other part of right lower leg with fat layer exposed; R60.0 Localized edema; E11.9 Type 2 diabetes mellitus without complications; Z79.84 Long term (current) use of oral hypoglycemic drugs; T82.59 Other mechanical complication of other cardiac and vascular devices and implants; Y82.8 Other medical devices associated with adverse incidents; Z79.01 Long term (current) use of anticoagulants
CPT/HCPCS: 11042

== ENCOUNTER 2022-02-18 12:45 | Outpatient (CLI) | payer MEDICARE, OTHER ==
[2022-02-18] MEDS ORDERED: SILVER NITRATE APPLICATOR 1 EA BOX ONE (13:42)
[2022-02-18] MEDS ORDERED: MUPIROCIN 2% CREAM 15 GM TUBE TP ONE (13:44)
[2022-02-18] MEDS ORDERED: GENTAMICIN 0.1% CREAM 15 GM TUBE ONE (13:44)
== END 2022-02-18 23:59 | disposition home or self-care (01) ==
LOC: WOU 12:45
PROVIDERS: ATTEND Podiatrist Foot & Ankle Surgery
DX: I87.313 Chronic venous hypertension (idiopathic) with ulcer of bilateral lower extremity (principal); L97.828 Non-pressure chronic ulcer of other part of left lower leg with other specified severity; L97.818 Non-pressure chronic ulcer of other part of right lower leg with other specified severity; T82.515A Breakdown (mechanical) of umbrella device, initial encounter; Z79.01 Long term (current) use of anticoagulants; E11.9 Type 2 diabetes mellitus without complications; Z79.84 Long term (current) use of oral hypoglycemic drugs; R60.0 Localized edema; I10 Essential (primary) hypertension
CPT/HCPCS: 17250

== ENCOUNTER 2022-03-04 12:55 | Outpatient (CLI) | payer MEDICARE, OTHER ==
[2022-03-04] MEDS ORDERED: GENTAMICIN 0.1% CREAM 15 GM TUBE ONE (13:36)
[2022-03-04] MEDS ORDERED: MUPIROCIN 2% CREAM 15 GM TUBE TP ONE (13:37)
[2022-03-04] MEDS ORDERED: CLOTRIMAZOLE 1% 15 GM TUBE TP ONE (13:58)
== END 2022-03-04 23:59 | disposition home or self-care (01) ==
LOC: WOU 12:55
PROVIDERS: ATTEND Podiatrist Foot & Ankle Surgery
DX: I87.2 Venous insufficiency (chronic) (peripheral) (principal); L84 Corns and callosities; B35.1 Tinea unguium; R60.0 Localized edema; M79.672 Pain in left foot; E11.9 Type 2 diabetes mellitus without complications; Z79.84 Long term (current) use of oral hypoglycemic drugs; Z79.01 Long term (current) use of anticoagulants; I10 Essential (primary) hypertension
CPT/HCPCS: G0463

== ENCOUNTER 2022-03-25 12:47 | Outpatient (CLI) | payer MEDICARE, OTHER ==
[2022-03-25] MEDS ORDERED: UREA 10% -AHA 4% CREAM 57 GM TUBE ONE (13:38)
[2022-03-25] MEDS ORDERED: HYDROCORTISONE 1% CREAM 28.35 GM TUBE TP ONE (13:38)
[2022-03-25] MEDS ORDERED: CLOTRIMAZOLE 1% 15 GM TUBE TP ONE (13:39)
== END 2022-03-25 23:59 | disposition home or self-care (01) ==
LOC: WOU 12:47
PROVIDERS: ATTEND Podiatrist Foot & Ankle Surgery
DX: I87.2 Venous insufficiency (chronic) (peripheral) (principal); R60.0 Localized edema; T82.51 Breakdown (mechanical) of other cardiac and vascular devices and implants; Y82.8 Other medical devices associated with adverse incidents; E11.9 Type 2 diabetes mellitus without complications; Z79.84 Long term (current) use of oral hypoglycemic drugs; B35.1 Tinea unguium; L84 Corns and callosities; M79.672 Pain in left foot
CPT/HCPCS: G0463

== ENCOUNTER 2022-04-08 12:30 | Outpatient (CLI) | payer MEDICARE, OTHER ==
[2022-04-08] MEDS ORDERED: CLOTRIMAZOLE 1% 15 GM TUBE TP ONE (13:06)
[2022-04-08] MEDS ORDERED: UREA 10% -AHA 4% CREAM 57 GM TUBE ONE (13:06)
[2022-04-08] MEDS ORDERED: HYDROCORTISONE 1% CREAM 28.35 GM TUBE TP ONE (13:06)
== END 2022-04-08 23:59 | disposition home or self-care (01) ==
LOC: WOU 12:30
PROVIDERS: ATTEND Podiatrist Foot & Ankle Surgery
DX: I87.323 Chronic venous hypertension (idiopathic) with inflammation of bilateral lower extremity (principal); R60.0 Localized edema; L84 Corns and callosities; B35.1 Tinea unguium; E11.9 Type 2 diabetes mellitus without complications; Z79.84 Long term (current) use of oral hypoglycemic drugs; Z79.01 Long term (current) use of anticoagulants; I10 Essential (primary) hypertension; T82.51 Breakdown (mechanical) of other cardiac and vascular devices and implants; Y82.8 Other medical devices associated with adverse incidents; M79.672 Pain in left foot
CPT/HCPCS: G0463

== ENCOUNTER 2022-04-29 12:58 | Outpatient (CLI) | payer MEDICARE, OTHER ==
[2022-04-29] MEDS ORDERED: CLOTRIMAZOLE 1% 15 GM TUBE TP ONE (13:47)
[2022-04-29] MEDS ORDERED: HYDROCORTISONE 1% CREAM 28.35 GM TUBE TP ONE (13:48)
== END 2022-04-29 23:59 | disposition home or self-care (01) ==
LOC: WOU 12:58
PROVIDERS: ATTEND Specialist
DX: I87.311 Chronic venous hypertension (idiopathic) with ulcer of right lower extremity (principal); I87.323 Chronic venous hypertension (idiopathic) with inflammation of bilateral lower extremity; L97.312 Non-pressure chronic ulcer of right ankle with fat layer exposed; R60.0 Localized edema; L84 Corns and callosities; B35.1 Tinea unguium; T82.51 Breakdown (mechanical) of other cardiac and vascular devices and implants; Y82.8 Other medical devices associated with adverse incidents
CPT/HCPCS: 11042; A6209

== ENCOUNTER 2022-09-22 11:01 | Outpatient (CLI) | payer MEDICARE, OTHER ==
[2022-09-22] MEDS ORDERED: HYDROCORTISONE 1% CREAM 28.35 GM TUBE TP ONE (12:03)
[2022-09-22] MEDS ORDERED: CLOTRIMAZOLE 1% 15 GM TUBE TP ONE (12:04)
== END 2022-09-22 23:59 | disposition home or self-care (01) ==
LOC: WOU 11:01
PROVIDERS: ATTEND Podiatrist Foot & Ankle Surgery
DX: I87.313 Chronic venous hypertension (idiopathic) with ulcer of bilateral lower extremity (principal); L97.822 Non-pressure chronic ulcer of other part of left lower leg with fat layer exposed; L97.812 Non-pressure chronic ulcer of other part of right lower leg with fat layer exposed; R60.1 Generalized edema; I10 Essential (primary) hypertension; E11.9 Type 2 diabetes mellitus without complications; Z79.84 Long term (current) use of oral hypoglycemic drugs; Z79.01 Long term (current) use of anticoagulants
CPT/HCPCS: 17250

== ENCOUNTER 2022-09-30 14:40 | Outpatient (CLI) | payer MEDICARE, OTHER ==
[~2022-09-30 14:40] MED LIST changes: +CLOTRIMAZOLE 1% 15 GM TUBE TP ONE; +HYDROCORTISONE 1% CREAM 28.35 GM TUBE TP ONE
== END 2022-09-30 23:59 | disposition home or self-care (01) ==
LOC: WOU 14:40
PROVIDERS: ATTEND Podiatrist Foot & Ankle Surgery
DX: I87.313 Chronic venous hypertension (idiopathic) with ulcer of bilateral lower extremity (principal); L97.822 Non-pressure chronic ulcer of other part of left lower leg with fat layer exposed; L97.812 Non-pressure chronic ulcer of other part of right lower leg with fat layer exposed; R60.1 Generalized edema; E11.9 Type 2 diabetes mellitus without complications; I10 Essential (primary) hypertension; Z79.84 Long term (current) use of oral hypoglycemic drugs; Z79.01 Long term (current) use of anticoagulants
CPT/HCPCS: 11042; 11045

== ENCOUNTER 2022-10-14 12:44 | Outpatient (CLI) | payer MEDICARE, OTHER ==
[~2022-10-14 12:44] MED LIST changes: -CLOTRIMAZOLE 1% 15 GM TUBE TP ONE; -HYDROCORTISONE 1% CREAM 28.35 GM TUBE TP ONE
[2022-10-14] MEDS ORDERED: CLOTRIMAZOLE 1% 15 GM TUBE TP ONE (13:36)
[2022-10-14] MEDS ORDERED: HYDROCORTISONE 1% CREAM 28.35 GM TUBE TP ONE (13:36)
== END 2022-10-14 23:59 | disposition home or self-care (01) ==
LOC: WOU 12:44
PROVIDERS: ATTEND Podiatrist Foot & Ankle Surgery
DX: I87.313 Chronic venous hypertension (idiopathic) with ulcer of bilateral lower extremity (principal); L97.822 Non-pressure chronic ulcer of other part of left lower leg with fat layer exposed; L97.812 Non-pressure chronic ulcer of other part of right lower leg with fat layer exposed; R60.1 Generalized edema; I82.91 Chronic embolism and thrombosis of unspecified vein; E11.9 Type 2 diabetes mellitus without complications; Z79.84 Long term (current) use of oral hypoglycemic drugs; T82.51 Breakdown (mechanical) of other cardiac and vascular devices and implants; Z79.01 Long term (current) use of anticoagulants
CPT/HCPCS: 17250

== ENCOUNTER 2022-11-04 13:02 | Outpatient (CLI) | payer MEDICARE, OTHER | END 2022-11-04 23:59 | disposition home or self-care (01) | LOC: WOU 13:02 | PROVIDERS: ATTEND Podiatrist Foot & Ankle Surgery | DX: I87.313 Chronic venous hypertension (idiopathic) with ulcer of bilateral lower extremity (principal); L97.822 Non-pressure chronic ulcer of other part of left lower leg with fat layer exposed; L97.812 Non-pressure chronic ulcer of other part of right lower leg with fat layer exposed; R60.1 Generalized edema; E11.9 Type 2 diabetes mellitus without complications; I10 Essential (primary) hypertension; Z79.84 Long term (current) use of oral hypoglycemic drugs; Z79.01 Long term (current) use of anticoagulants | CPT/HCPCS: 17250 ==

== ENCOUNTER 2022-11-11 13:34 | Outpatient (CLI) | payer MEDICARE, OTHER ==
[2022-11-11] MEDS ORDERED: SILVER NITRATE APPLICATOR 1 EA BOX ONE (14:17)
[2022-11-11] MEDS ORDERED: CLOTRIMAZOLE 1% 15 GM TUBE TP ONE (14:37)
== END 2022-11-11 23:59 | disposition home or self-care (01) ==
LOC: WOU 13:34
PROVIDERS: ATTEND Podiatrist Foot & Ankle Surgery
DX: I87.313 Chronic venous hypertension (idiopathic) with ulcer of bilateral lower extremity (principal); L97.828 Non-pressure chronic ulcer of other part of left lower leg with other specified severity; L97.818 Non-pressure chronic ulcer of other part of right lower leg with other specified severity; R60.1 Generalized edema; E11.9 Type 2 diabetes mellitus without complications; Z79.84 Long term (current) use of oral hypoglycemic drugs; Z79.01 Long term (current) use of anticoagulants
CPT/HCPCS: 17250; G0463

== ENCOUNTER 2024-01-25 10:53 | Outpatient (CLI) | payer MEDICARE, OTHER ==
[2024-01-25] MEDS ORDERED: HYDROCORTISONE 1% CREAM 28.35 GM TUBE TP ONE (11:40)
[2024-01-25] MEDS ORDERED: CLOTRIMAZOLE 1% 15 GM TUBE TP ONE (11:40)
== END 2024-01-25 23:59 | disposition home or self-care (01) ==
LOC: WOU 10:53
PROVIDERS: ATTEND Podiatrist Foot & Ankle Surgery
DX: I87.313 Chronic venous hypertension (idiopathic) with ulcer of bilateral lower extremity (principal); L97.318 Non-pressure chronic ulcer of right ankle with other specified severity; L97.818 Non-pressure chronic ulcer of other part of right lower leg with other specified severity; L97.828 Non-pressure chronic ulcer of other part of left lower leg with other specified severity; Z79.01 Long term (current) use of anticoagulants; E11.9 Type 2 diabetes mellitus without complications; Z79.84 Long term (current) use of oral hypoglycemic drugs

== ENCOUNTER 2025-02-14 14:17 | Emergency (ER) | payer MEDICARE, OTHER ==
[~2025-02-14] VITALS: Ht 182.9 cm; Wt 81.6 kg
[2025-02-14 14:28] VITALS: TEMP 98
[2025-02-14 14:50] VITALS: BP 127/79; O2SAT 98
[2025-02-14] MEDS: ACETAMINOPHEN 325 MG TABLET PO ONE (15:10)
[2025-02-14 15:24] LABS: PLATELET COUNT (AUTO) 226 K/uL (150-450); RED BLOOD CELL COUNT(AUTO) 4.44 MIL/uL (4.5-6.0); RED CELL DISTRIBUTION WIDTH 14.4 % (11.5-15.0); WHITE BLOOD COUNT (AUTO) 5.7 K/uL (4.3-11.0)
[2025-02-14 15:31] LABS: CALCIUM, SERUM 8.7 mg/dL (8.5-10.1); CREATININE 1.7 mg/dL (0.6-1.3); SODIUM SERUM 136 mmol/L (136-145); UREA NITROGEN, BLOOD 25 mg/dL (7-18)
[2025-02-14 15:43] LABS: INR 1.07 (0.91-1.10)
[2025-02-14] MEDS ORDERED: SELE120S3 TP (16:25)
[2025-02-14] MEDS ORDERED: ALBU6.7H9 IH (16:25)
[2025-02-14] MEDS ORDERED: DAPA10TA PO (16:25)
[2025-02-14] MEDS ORDERED: TELM40TA8 PO (16:25)
[2025-02-14] MEDS ORDERED: GLIP10TA21 PO (16:25)
[2025-02-14] MEDS ORDERED: LEVO125T8 PO (16:25)
[2025-02-14] MEDS ORDERED: SEMA7TAB PO (16:25)
[2025-02-14] MEDS ORDERED: MULT-213 PO (16:25)
[2025-02-14] MEDS ORDERED: ATOR10TA PO (16:25)
[2025-02-14] MEDS ORDERED: TADA2.5T3 PO (16:25)
[2025-02-14] MEDS ORDERED: BUDE10.2 IH (16:25)
== END 2025-02-14 16:40 | disposition left against medical advice (07) ==
LOC: ER 14:26
DX: I82.411 Acute embolism and thrombosis of right femoral vein (principal); I82.431 Acute embolism and thrombosis of right popliteal vein; M79.604 Pain in right leg; E11.9 Type 2 diabetes mellitus without complications; E78.5 Hyperlipidemia, unspecified; F17.200 Nicotine dependence, unspecified, uncomplicated; G89.29 Other chronic pain; J44.9 Chronic obstructive pulmonary disease, unspecified; K21.9 Gastro-esophageal reflux disease without esophagitis; Z79.01 Long term (current) use of anticoagulants; Z79.51 Long term (current) use of inhaled steroids; Z79.84 Long term (current) use of oral hypoglycemic drugs; Z79.899 Other long term (current) drug therapy; Z86.711 Personal history of pulmonary embolism; Z86.718 Personal history of other venous thrombosis and embolism; Z86.73 Personal history of transient ischemic attack (TIA), and cerebral infarction without residual deficits; Z95.1 Presence of aortocoronary bypass graft; Z86.79 Personal history of other diseases of the circulatory system; Z87.448 Personal history of other diseases of urinary system; Z87.438 Personal history of other diseases of male genital organs; Z86.59 Personal history of other mental and behavioral disorders
CPT/HCPCS: 36415; 80048-TC; 85025-TC; 85730-TC; 93971-TC

== ENCOUNTER 2025-04-23 11:37 | Outpatient (CLI) | payer MEDICARE, OTHER ==
[~2025-04-23 11:37] MED LIST changes: +ALBU6.7H9 IH; +ATOR10TA PO; -ATOR40TA PO; +BUDE10.2 IH; -CARV12.52 PO; +DAPA10TA PO; -GLIM1TAB18 PO; +GLIP10TA21 PO; -LEVO112T7 PO; +LEVO125T8 PO; -MAGN400T26 PO; +MULT-213 PO; -OMEG-72 PO; +SELE120S3 TP; +SEMA7TAB PO; -SITA100T PO; +TADA2.5T3 PO; +TELM40TA8 PO
[2025-04-23] MEDS ORDERED: CLOTRIMAZOLE 1% 15 GM TUBE TP ONE (11:59)
== END 2025-04-23 23:59 | disposition home or self-care (01) ==
LOC: WOU 11:37
PROVIDERS: ATTEND Specialist
DX: I87.311 Chronic venous hypertension (idiopathic) with ulcer of right lower extremity (principal); L97.812 Non-pressure chronic ulcer of other part of right lower leg with fat layer exposed; I89.0 Lymphedema, not elsewhere classified; E11.9 Type 2 diabetes mellitus without complications; Z79.84 Long term (current) use of oral hypoglycemic drugs; R60.1 Generalized edema; L60.2 Onychogryphosis; B35.1 Tinea unguium; L84 Corns and callosities; Z79.01 Long term (current) use of anticoagulants
CPT/HCPCS: 29581